=== PATIENT | male | born 1945 | race Caucasian/White ===

== ENCOUNTER 2020-08-23 20:19 | Emergency (ER) | payer MEDICARE, SELFPAY ==
[2020-08-23 20:24] VITALS: BP 201/87; PULSE 97; RESP 16; TEMP 37; O2SAT 98
[2020-08-23 20:37] VITALS: BP 182/81; PULSE 86; RESP 98; O2SAT 95
--- NOTE | 2020-08-23 20:56 | ED.ABDPAIN ---
HPI - Abdominal Pain General Chief Complaint: Extremity Injury, Lower <Tashi Prather PA-C - Last Filed: 08/23/20 21:02> Stated Complaint: right leg swelling <Tahsi Prather PA-C - Last Filed: 08/23/20 21:02> Time Seen by Provider: 08/23/20 20:25 <Tasih Prather PA-C - Last Filed: 08/23/20 21:02> Source: patient and family <Tashi Prather PA-C - Last Filed: 08/23/20 21:02> Mode of arrival: ambulatory <Tashi Prather PA-C - Last Filed: 08/23/20 21:02> Limitations: no limitations <Tashi Prather PA-C - Last Filed: 08/23/20 21:02> History of Present Illness HPI narrative: Patient is a 74-year-old male who presents to emergency department for evaluation of right leg pain and swelling that he noticed today. Patient notes he was discharged on from the hospital after having a right-sided carotid endarterectomy. Patient notes that his recovery is gone fine but noticed some swelling in the leg today patient notes upon returning to emergency department at [place] that he has had resolution of the swelling patient denies any pain. Patient denies injury trauma or similar occurrence in the past or any other complaints on arrival resting comfortably in no distress <Tashi Prather PA-C - Last Filed: 08/23/20 21:02> Related Data Allergies/Adverse Reactions: Allergies Allergy/AdvReac Type Severity Reaction Status Date / Time No Known Drug Allergies Allergy Unknown Verified 08/01/16 12:20 <Tashi Prather PA-C - Last Filed: 08/23/20 21:02> Review of Systems Review of Systems: All systems reviewed & are unremarkable except as noted in HPI and below <Tashi Prather PA-C - Last Filed: 08/23/20 21:02> [facility] Past Medical History Medical History: Medical History Hypertension Peripheral arterial disease <Tashi Prather PA-C - Last Filed: 08/23/20 21:02> Surgical History Surgical History: Surgical History H/O carotid endarterectomy <Tashi Prather PA-C - Last Filed: 08/23/20 21:02> Social History Social History: Social History (Updated 08/23/20 @ 21:00 by Tashi Prather PA-C) Smoking status: Unknown if ever smoked <Tashi Prather PA-C - Last Filed: 08/23/20 21:02> Exam Narrative: Exam Narrative: GENERAL: Well-appearing, well-nourished, and in no acute distress. HEAD: Normocephalic, atraumatic. EYES: PERRLA and EOMI. ENT: Nares clear, no rhinorrhea or epistaxis. Mucous membranes moist. NECK: Supple. No adenopathy or masses. CHEST: Clear to auscultation. No respiratory distress. No wheezes rales or rhonchi HEART: Regular rate and rhythm. No murmur heard. Normal peripheral pulses. EXTREMITIES: Normal range of motion. No edema. No deformity or tenderness of the right lower extremity SKIN: Warm, dry, no rash. NEURO: No focal deficits. Alert and oriented x3. Neurovascularly intact PSYCH: Normal mood and affect. <Tashi Prather PA-C - Last Filed: 08/23/20 21:02> Course Consultations Consultation #1: Discussed case with Dr. Young vascular surgeon who notes that the patient can be given a dose of Lovenox for ultrasound in the morning <Tashi Prather PA-C - Last Filed: 08/23/20 21:02> Date: 08/23/20 <Tashi Prather PA-C - Last Filed: 08/23/20 21:02> Time: 21:00 <JOSIAH Perez Last Filed: 08/23/20 21:02> Vital Signs Vital signs: Vital Signs Temperature 98.6 F 08/23/20 20:24 Pulse Rate 97 08/23/20 20:24 Respiratory Rate 16 08/23/20 20:24 Blood Pressure 201/87 H 08/23/20 20:24 Pulse Oximetry 98 08/23/20 20:24 Temperature 98.6 F 08/23/20 20:24 Pulse Rate 86 08/23/20 20:37 Respiratory Rate 98 H 08/23/20 20:37 Blood Pressure 182/81 H 08/23/20 20:37 Pulse Oximetry 95 08/23/20 20:37 <Tashi Prather PA-C - Last Filed
[2020-08-23] MEDS: ENOXAPARIN 100 MG/ML SYRINGE SUB-Q (21:11)
== END 2020-08-23 21:16 | disposition home or self-care (01) ==
PROVIDERS: Emergency Provider General Practice
DX: M79.604 Pain in right leg (principal); I10 Essential (primary) hypertension; I73.9 Peripheral vascular disease, unspecified
CPT/HCPCS: 96372; 99283; J1650

== ENCOUNTER 2020-08-24 07:15 | Outpatient (CLI) | payer MEDICARE, SELFPAY ==
--- NOTE | ~2020-08-24 | US_ITS ---
EXAMINATION: US venous doppler LE RT EXAM DATE: 08/24/2020 08:06 INDICATION: Right lower extremity swelling after endarterectomy. TECHNIQUE: Multiple grayscale, color flow and Doppler images of the right lower extremity deep venous system were obtained and reviewed. Comparison is made to prior examination from 08/01/2016. FINDINGS: The right common femoral, femoral and profunda veins demonstrate normal color flow, respira tory variation, augmentation and compressibility. Compressibility, color flow confirmed within the r ight popliteal, posterior tibial, peroneal, and greater saphenous veins. IMPRESSION: No right lower extremity deep venous thrombosis. Reviewed, dictated and finalized at location A.
== END 2020-08-24 07:16 | disposition home or self-care (01) ==
PROVIDERS: Visit Provider Emergency Medicine Emergency Medical Services
DX: M79.89 Other specified soft tissue disorders (principal)
CPT/HCPCS: 93971

== ENCOUNTER 2024-10-05 11:57 | Outpatient (CLI) | payer MEDICARE, SELFPAY ==
--- NOTE | 2024-10-05 12:19 | ECG_ITS ---
Test Date: 2024-10-05 12:26:12 Measurements Intervals [place] Rate: 82 P: -73 NH: 141 QRS: 16 QRSD: 103 T: 56 QT: 374 QTc: 439 Interpretive Statements SINUS RHYTHM INCOMPLETE RIGHT BUNDLE BRANCH BLOCK BORDERLINE ECG No previous ECG available for comparison Electronically Signed On 10-05-2024 13:12:15 TRUCK DOCK MATERIAL MOVER by Percy Poon D.O.
[2024-10-05 12:23] LABS: Basophils Absolute Auto 0.1 K/mm3 (0.0-0.1); Basophils Percent Auto 0.7 % (0.2-1.2); Eosinophils Absolute Auto 0.1 K/mm3 (0-0.3); Hematocrit 31.5 % (42.0-52.0); Hemoglobin 10.8 g/dL (14.0-18.0); Immature Granulocyte Absolute 0.02 K/mm3 (0.00-0.031); Immature Granulocyte Percent A 0.2 % (0-0.5); Lymphocytes Absolute Auto 2.21 K/mm3 (0.9-3.2); Lymphocytes Percent Auto 26.6 % (18.3-44.2); Mean Corpuscular HGB Conc 34.3 g/dl (32-36); Mean Corpuscular Hemoglobin 34.3 pg (26-34); Mean Platelet Volume 11.6 fl (7.4-10.4); Monocytes Absolute Auto 1.1 K/mm3 (0.1-0.6); Monocytes Percent Auto 13.5 % (2.6-8.5); Neutrophils Absolute Auto 4.8 K/mm3 (1.3-6.7); Platelet Count Result 224 k/mm3 (150-375); Red Blood Count 3.15 M/mm3 (4.6-6.20); Red Cell Distribution Width 13.4 % (11.5-14.5); White Blood Count 8.3 K/mm3 (4.5-10.0)
[2024-10-05 12:25] LABS: Add Urine Microscopic? YES; Appearance Urine Clear (Clear); Bilirubin Urine Negative (Negative); Blood Urine Negative (Negative); Color Urine Dark Yellow (Yellow); Glucose Urine UA Negative (Negative); Ketones Urine Negative (Negative); Leukocyte Esterase Ur Negative LEU/UL (Negative); Nitrate Urine Negative (Negative); Protein Urine Negative (Negative); Specific Grav Ur 1.016 (1.001-1.035); Urobilinogen Urine 0.2 mg/dL (<2.0)
[2024-10-05 12:37] LABS: Anion Gap 6 mmol/L (4-12); Blood Urea Nitrogen 20 mg/dL (9-20); Calcium 9.1 mg/dL (8.4-10.2); Carbon Dioxide 31 mmol/L (22-30); Chloride 98 mmol/L (98-107); Estimated Glomerular Filt Rate > 60; Glucose 92 mg/dL (65-110); Potassium 4.1 mmol/L (3.4-5.0); Sodium 135 mmol/L (137-145)
== END 2024-10-05 11:58 | disposition home or self-care (01) ==
PROVIDERS: Visit Provider Nurse Practitioner Family
DX: R94.31 Abnormal electrocardiogram [ECG] [EKG] (principal); R53.83 Other fatigue; M25.569 Pain in unspecified knee
CPT/HCPCS: 36415; 80048; 81001; 85025; 93005

== ENCOUNTER 2024-12-11 11:44 | Outpatient (CLI) | payer MEDICARE, SELFPAY ==
[2024-12-11 14:01] LABS: Basophils Absolute Auto 0.1 K/mm3 (0.0-0.1); Basophils Percent Auto 0.9 % (0.2-1.2); Eosinophils Absolute Auto 0.1 K/mm3 (0-0.3); Eosinophils Percent Auto 1.1 % (0-4.4); Hematocrit 33.3 % (42.0-52.0); Hemoglobin 11.3 g/dL (14.0-18.0); Immature Granulocyte Absolute 0.03 K/mm3 (0.00-0.031); Immature Granulocyte Percent A 0.3 % (0-0.5); Lymphocytes Absolute Auto 2.05 K/mm3 (0.9-3.2); Lymphocytes Percent Auto 22.7 % (18.3-44.2); Mean Corpuscular HGB Conc 33.9 g/dl (32-36); Mean Corpuscular Hemoglobin 33.4 pg (26-34); Mean Corpuscular Volume 98.5 fl (80-100); Mean Platelet Volume 11.8 fl (7.4-10.4); Monocytes Absolute Auto 0.8 K/mm3 (0.1-0.6); Monocytes Percent Auto 9.2 % (2.6-8.5); Neutrophils Absolute Auto 5.9 K/mm3 (1.3-6.7); Neutrophils Percent Auto 65.8 % (45.5-73.1); Platelet Count Result 219 k/mm3 (150-375); Red Blood Count 3.38 M/mm3 (4.6-6.20); Red Cell Distribution Width 13.2 % (11.5-14.5)
[2024-12-11 14:12] LABS: INR 0.9; Prothrombin Time 12.3 Seconds (11.1-14.7)
[2024-12-11 14:13] LABS: Add Urine Microscopic? NO; Appearance Urine Clear (Clear); Bilirubin Urine Negative (Negative); Blood Urine Negative (Negative); Color Urine Yellow (Yellow); Glucose Urine UA Negative (Negative); Ketones Urine Negative (Negative); Leukocyte Esterase Ur Negative LEU/UL (Negative); Nitrate Urine Negative (Negative); Partial Thromboplastin Time 27.1 Seconds (22.3-36.8); Protein Urine Negative (Negative); Specific Grav Ur 1.007 (1.001-1.035); Urobilinogen Urine 0.2 mg/dL (<2.0)
[2024-12-11 14:14] LABS: Anion Gap 5 mmol/L (4-12); Blood Urea Nitrogen 17 mg/dL (9-20); Calcium 9.5 mg/dL (8.4-10.2); Carbon Dioxide 32 mmol/L (22-30); Chloride 98 mmol/L (98-107); Estimated Glomerular Filt Rate > 60; Glucose 92 mg/dL (65-110); Potassium 4.6 mmol/L (3.4-5.0); Sodium 135 mmol/L (137-145)
[2024-12-11 14:33] LABS: Hemoglobin A1C 5.1 % (<5.7)
[2024-12-11 14:46] LABS: Urine Cotinine NEGATIVE
[2024-12-11 15:23] LABS: MRSA (PCR) NOT DETECTED (NOT DETECTE)
--- OUTSIDE RECORDS SUMMARY | 2024-12-13 17:58 | XMS_ITS | Encounter Summary ---
Author Organization [facility] Address [address] [place] [address] Phone Care Team Providers Care Analytical Scientist Name Role Phone Pelon Menard MD Primary Care Provider + [phone] Ck Kerr MD Unavailable Encounter Details Date Type Department Care Team (Late st Contact Info) Description 06/18/2021 Transcribe Orders [facility] Laboratory Services [address] [place] [address] Lon Andrade MD [address] [facility] [address] [place], [place] [address] Hypertension, unspecified type (Primary Dx) Social History Tobacco Use Types Packs/Day Years Used Date Smoking Tobacco: Former Cigarettes 1 10 1 3 - 1982 Smokeless Tobacco: Never Alcohol Use Standard Drinks/Week Comments Yes 14 (1 standard drink = 0.6 oz pu re alcohol) PHQ-2 Answer Date Recorded Total Score - Questions 1-9 0 11/22 Sex and Gender Information Value Date Recorded Sex Assigned at Not on file Legal Sex Male 8:37 PM CDT Gender Identity Not on file Sexual Orientation Not on file documented as of this encounter Plan of Treatment Scheduled Orders Name Type Priority Associated Diagnoses Orde r Schedule BASIC METABOLIC PANEL W/ CALCIUM TOTAL Lab Routine Hypertension, unspecified type Expected: 06/18/2021, Expires: 06/18/2022 UR CREATININE RANDOM Lab Routine Hypertension, unspecified type Expected: 06/18/2021, Expires: 06/18/2022 UR UREA NITROGEN (UUN) Lab Routine Hypertension, unspecified type Expected: 06/18/2021, Expires: 06/18/2022 documented as of this encounter Visit Diagnoses Diagnosis Hypertension, unspecified type- Primary documented in this encounter Additional Health Concerns Assessment Noted Time PHQ-9 Depression Total Score: 0 12/10/19 21 9:00 AM 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
--- OUTSIDE RECORDS SUMMARY | 2024-12-13 17:58 | XMS_ITS | Encounter Summary ---
Author Organization [facility] Address [address] [place] [address] Phone Care Team Providers Care Formula Bottler Name Role Phone Pelon Menard MD Primary Care Provider + [phone] Ck Kerr MD Unavailable Reason for Visit * Reason Comments Medication Refill Encounter Details Date Type Department Care Team ([facility] Contact Info) Description 04/27/2022 Refill [facility] [address] [place] [address] Pelon Menard MD [address] [place] [address] [address] [place] [address] Medication Refill Social History Tobacco Use Types Packs/Day Years Used Date Smoking Tobacco: Former Cigarettes 1 10 1982 Smokeless Tobacco: Never Alcohol Use Standard Drinks/Week Comments Yes 14 (1 standard drink = 0.6 oz pu re alcohol) PHQ-2 Answer Date Recorded Total Score - Questions 1-9 0 07/23 Sex and Gender Information Value Date Recorded Sex Assigned at Not on file Legal Sex Male 8:37 PM CDT Gender Identity Not on file Sexual Orientation Not on file COVID-19 Exposure Response Date Recorded In the last 10 days, have yo u been in contact with someone who was confirmed or suspected to have Coronavirus/COVID-19? No / Unsure 04/20/2022 2:54 PM CDT documented as of this encounter Plan of Treatment Not on file documented as of this encounter Visit Diagnoses Diagnosis Gout of ankle, unspecified cause, unspecified chronicity, unspecified laterality documented in this encounter Additional Health Concerns Assessment Noted Time PHQ-9 Depression Total Score: 0 08/18/20 21 3:00 PM CDT documented as of this encounter Care Teams Formula Bottler Relationship Specialty Start Date End Date Pelon Menard MD [address] [facility] [address] [place] [address] PCP - General Internal Medicine 06/13/18 Ck Kerr MD [address] [place] [address] [address] [place] [address] Consulting Physician General Surgery 08/01/18 documented as of this encounter
--- OUTSIDE RECORDS SUMMARY | 2024-12-13 17:58 | XMS_ITS | Encounter Summary ---
Author Organization [facility] Address [address] [place] [address] Phone Care Team Providers Care Helicopter Technician Name Role Phone Pelon Menard MD Primary Care Provider + [phone] Ck Kerr MD Unavailable Encounter Details Date Type Department Care Team ([facility] Contact Info) Description 10/18/2022 Telephone [facility] [address] [place] [address] Pelon Menard MD [address] [address] Social History Tobacco Use Types Packs/Day Years Used Date Smoking Tobacco: Former Cigarettes 1 10 1 1982 Smokeless Tobacco: Never Alcohol Use Standard [...] suspected to have Coronavirus/COVID-19? No / Unsure 09/28/2022 12:00 PM SET UP WORKER documented as of this encounter Miscellaneous Notes * Telephone Encounter - Rut Argueta CMA - 10/19/2022 2:25 PM CST 14[address] Maria M with [facility] called to inform office that they received requested documents. By: Rut Argueta CMA; 10/19/2022, 2:26 PM SET UP WORKER UP WORKER * Telephone Encounter - Carmina Ge LPN - 10/19/2022 1:41 PM CST Returned call and left a message for them to call me back. UP WORKER * Telephone Encounter - Gissell Huffman - 10/18/2022 11:15 AM CST Maria M/[facility] called regarding the documents that were sent via [employer] about the letter of competency. stated she is waiting for over a week to hear from someone. [phone] UP WORKER documented in this encounter Plan of Treatment Not on file documented as of this encounter Visit Diagnoses Not on filedocumented in this encounter Additional Health Concerns Assessment Noted Time PHQ-9 Depression Total Score: 0 08/18/20 21 3:00 PM CDT documented as of this encounter Care Teams Helicopter Technician Relationship Specialty Start Date End Date Pelon Menard MD [address] [facility] [address] [place] [address] PCP - General Internal Medicine 06/13/18 Ck Kerr MD 1 [facility] [address] [place] [address] Consulting Physician General Surgery 08/01/18 documented as of this encounter
--- OUTSIDE RECORDS SUMMARY | 2024-12-13 17:58 | XMS_ITS | Encounter Summary ---
Author Organization [facility] Address [address] [place] [address] Phone Care Team Providers Care Java Websphere Developer Name Role Phone Pelon Menard MD Primary Care Provider + [phone] Ck Kerr MD Unavailable Reason for Visit * Reason Onset Date Comments Medication Refill 12/24/2020 Encounter Details Date Type Department Care Team ([facility] st Contact Info) Description 12/24/2020 Refill [facility] [address] [place] [address] Pelon Menard MD [address] [place] [address] Medication Refill Social History Tobacco Use [...] Exposure Response Date Recorded In the last month, have you been in contact with someone who was confirmed or suspected to have Coronavirus / COVID-19? No / Unsure 12/10/2020 8:54 AM PLANT AND EQUIPMENT WORKER documented as of this encounter Plan of Treatment Not on file documented as of this encounter Visit Diagnoses Not on filedocumented in this encounter Additional Health Concerns Assessment Noted Time PHQ-9 Depression Total Score: 0 12/10/19 21 9:00 AM PLANT AND EQUIPMENT WORKER documented as of this encounter Care Teams Java Websphere Developer Relationship Specialty Start Date End Date Pelon Menard MD [address] [facility] [address] [place] [address] PCP - General Internal Medicine 06/13/18 Ck Kerr MD 1 [facility] [address] [place] [address] Consulting Physician General Surgery 08/01/18 documented as of this encounter
--- OUTSIDE RECORDS SUMMARY | 2024-12-13 17:58 | XMS_ITS | Clinical Summary ---
Author Organization [facility] Address [address] [place] [address]. [place] [address] [place] [address] Care Team Providers Care Supervisor Ship Maintenance Services Name Role Phone Freddy Alvarado MD Unavailable [phone] Pelon Menard MD Primary Care Provider [phone]- [phone] Allergies No known active allergies Medications trospium 20 MG tabletIndication s:Overactive bladder Take 1 tablet (20 mg total) by mouth 2 (two) times daily. 180 tablet 11/08/2018 Active aspirin EC (ECOTRIN) 81 MG tablet Take 1 tablet (81 mg total) by mouth daily. Active Cholecalciferol (VITAMIN D3 ULTRA POTENCY) 1.25 MG (61206 UT) Tab Take 1 tablet by mouth daily. Active amLODIPine (NORVASC) 5 MG tablet Take 2 tablets (10 mg total) by mouth every evening. 09/29/2022 Active allopurinol (ZYLOPRIM) 300 MG tablet Take 1 tablet (300 mg total) by mouth daily. 07/06/2017 Active Multiple Vitamin (MULTIVITAMIN ADULT OR) Take 1 tablet by mouth. Active fish oil (OMEGA-3 FATTY ACID) 1000 MG Cap capsule Take 1 capsule (1,000 mg total) by mouth. Active CO ENZYME Q-10 OR Take 200 mg by mouth. Active cloNIDine (CATAPRES) 0.2 MG tablet Take 1 tablet (0.2 mg total) by mouth nightly. Active fenofibrate 160 MG tablet Take 1 tablet (160 mg total) by mouth daily. 08/04/2017 Active furosemide (LASIX) 40 MG tablet Take 1 tablet (40 mg total) by mouth 2 (two) times daily. 07/28/2022 Active indapamide (LOZOL) 1.25 MG tablet Take 1 tablet (1.25 mg total) by mouth every morning. 02/09/2023 Active atorvastatin (LIPITOR) 40 MG tablet Take 1 tablet (40 mg total) by mouth daily. 11/22/2022 Active metoprolol succinate ER (TOPROL-XL) 50 MG 24 hr tablet Take 1 tablet (50 mg total) by mouth 2 (two) times daily. 06/08/2022 Active olmesartan (BENICAR) 40 MG tablet Take 1 tablet (40 mg total) by mouth daily. 01/11/2023 Active potassium chloride CR (K-TAB) 10 MEQ Tab CR tablet Take 1 tablet (10 mEq total) by mouth daily. 02/09/2023 Active terazosin (HYTRIN) 2 MG capsule Take 1 capsule (2 mg total) by mouth nightly at bedtime. Active isosorbide mononitrate ER (IMDUR) 120 MG 24 hr tablet TAKE 1 TABLET BY MOUTH IN THE EVENING between 6-8pm 02/21/2024 Active Active Problems Problem Noted Date Diagnosed Date Overactive bladder 03/28/2018 Social History Tobacco Use Types Packs/Day Years Used Date Smoking Tobacco: Former Cigarettes Smokeless Tobacco: Never Sex and Gender Information Value Date Recorded Sex Assigned at Not on file Legal Sex Male 9:07 PM CDT Gender Identity Not on file Sexual Orientation Not on file Last Filed Vital Signs Vital Sign Reading Time Taken Comments Blood Pressure 156/86 04/12/2024 2:54 PM CDT Pulse 106 04/12/2024 2:54 PM CDT Temperature - - Respiratory Rate - - Oxygen Saturation 98% 04/12/2024 2:54 PM CDT Inhaled Oxygen Concentration - - Weight 88.5 kg (195 lb) 04/12/2024 2:54 PM CDT Height 175.3 cm (5' 9 ) 04/12/2024 2:54 PM CDT Body Mass Index 28.8 04/12/2024 2:54 PM CDT Plan of Treatment Upcoming Encounters Date Type Department Care Team (Late st Contact Info) Description 04/18/2025 2:15 PM CDT Appointment [facility] [address] [place] [address] 04/18/2025 2:45 PM CDT Office Visit [facility] [address] [place] [address] Freddy Alvarado MD [address] [facility] [address] [place] [address] Health Maintenance Due Date Last Done Comments Annual Medicare Wellness Visit 2008 RSV Immunization or 60+ Years (1 - 1-dose 75+ series) 2018 COVID-19 Vaccine ( season) 2024 08/20/2022, 10/12/2021, 01/02/2021, Additional history exists Influenza Adult (#1) 2024 07/29/2020, 08/25/2019, 08/14/2018, Additional history exists DTaP, Tdap and Td Vaccines (2 - Td or Tdap) 12/13/2029 12/13/2019 Zoster Vaccines Completed 12/06/2019, 1003/2019, 09/07/2012 Pneumococcal Vaccine: 65+ Years Completed 12/13/2019, 12/14/2018, 09/09/2010 Meningococcal B Vaccine Aged Out No l onger eligible based on patient's age to complete this topic Meningococcal Vaccine Aged Out No jesus iveth eligible based on patient's age to complete this topic RSV Immunizations Under 20 Months Aged Out No longer eligible based on patient's age to complete this topic Insurance MEDICARE [facility] Care Teams Supervisor Ship Maintenance Services Relationship Specialty Start Date End Date Pelon Menard MD [address] [address] PCP - General INTERNAL MEDICINE 01/25/23 Freddy Alvarado MD [address] [address] VASCULAR SURGERY 01/25/23
--- OUTSIDE RECORDS SUMMARY | 2024-12-13 17:58 | XMS_ITS | Encounter Summary ---
Author Organization [facility] Address [address] [place] [address] Phone Care Team Providers Care Sawmill Hand Name Role Phone Pelon Menard MD Primary Care Provider + [phone] Ck Kerr MD Unavailable Reason for Visit * Reason Comments Medication Refill Encounter Details Date Type Department Care Team ([facility] Contact Info) Description 03/29/2022 Refill [facility] [address] [facility] [address] [place] [address] Pelon Menard MD [address] [place] [address] [address] [place] [address] Medication Refill Social History Tobacco [...] on file documented as of this encounter Miscellaneous Notes * Telephone Encounter - Lily Muñoz MA - 03/29/2022 1:07 PM CDT Requested Prescriptions Pending Prescriptions Disp Refills ??? allopurinol (ZYLOPRIM) 300 MG Tablet [Pharmacy Med Name: ALLOPURINOL 300MG] 30 Tablet 0 Sig: TAKE 1 TABLET BY MOUTH DAILY. documented in this encounter Plan of Treatment Not on file documented as of this encounter Visit Diagnoses Diagnosis Gout of ankle, unspecified cause, unspecified chronicity, unspecified laterality documented in this encounter Additional Health Concerns Assessment Noted Time PHQ-9 Depression Total Score: 0 08/18/20 21 3:00 PM CDT documented as of this encounter Care Teams Sawmill Hand Relationship Specialty Start Date End Date Pelon Menard MD [address] [facility] [address] [place] [address] PCP - General Internal Medicine 06/13/18 Ck Kerr MD 1 [facility] [address] [place] [address] Consulting Physician General Surgery 08/01/18 documented as of this encounter
--- OUTSIDE RECORDS SUMMARY | 2024-12-13 17:58 | XMS_ITS | Clinical Summary ---
Author Organization [facility] Address [address] [facility] [address] [place] [address] Phone Care Team Providers Care Instructional Paraprofessional Name Role Phone Pelon Menard MD Primary Care Provider +- [phone] Ck Kerr MD Unavailable Allergies No known active allergies Medications [place]-3 Fatty Acids (FISH OIL PO) Take 1,000 mg by mouth. Take two daily Active Multiple Vitamins-Mineral s (MULTIVITAMIN PO) Take 1 Tab by mouth. Active Aspirin 81 MG Tablet Take 81 mg by mouth daily. Active Cholecalciferol (VITAMIN D-3 PO) Take 1 Tab by mouth daily. Active Coenzyme Q10 (CO Q 10 PO) Take 200 mg by mouth. Take two daily Active atorvastatin (LIPITOR) 40 MG Tablet Take 40 mg by mouth daily. 2 Active clopidogrel (PLAVIX) 75 MG Tablet Take 75 mg by mouth daily. 2 Active mometasone (ELOCON) 0.1 % Cream as needed 2 Active nitroGLYCERIN (NITROSTAT) 0.4 MG SL Tablet 0.4 mg by Sublingual route. 2 Active cloNIDine (CATAPRES) 0.2 MG Tablet Take 0.2 mg by mouth nightly. Active furosemide (LASIX) 40 MG Tablet 1 Tablet 2 times daily. 90 Tablet 2 Active allopurinol (ZYLOPRIM) 300 MG TabletIndication s:Gout of ankle, unspecified cause, unspecified chronicity, unspecified laterality TAKE 1 TABLET BY MOUTH DAILY. 90 Tablet 2 2 Active amLODIPine (NORVASC) 5 MG Tablet Take 2 Tablets by mouth every evening. 180 Tablet 3 2 Active Olmesartan Medoxomil 40 MG Tablet Take 1 Tablet by mouth daily. 90 Tablet 1 2 Active isosorbide mononitrate (IMDUR) 120 MG TABLET SR 24 HR Take 1 Tablet by mouth every evening. 90 Tablet 1 2 Active potassium chloride CR (KLORCON) 10 MEQ Tablet Controlled ReleaseIndicatio ns:Benign prostatic hyperplasia with urinary obstruction,Hype rtensive kidney disease with stage 1 chronic kidney disease,Abnormal blood findings TAKE 1 TABLET BY MOUTH DAILY. 90 Tablet 2 2 Active indapamide (LOZOL) 1.25 MG Tablet Take 1 Tablet by mouth every morning. 90 Tablet 3 2 Active trospium (SANCTURA) 20 MG Tablet Take 1 Tablet by mouth in the morning and at bedtime. 60 Tablet 3 2 Active Active Problems Problem Noted Date Diagnosed Date Carotid stenosis, asymptomatic, right 09/03/2020 Hypertensive kidney disease with stage 1 chronic kidney disease 12/15/2019 Adenomatous polyp of transverse colon 12/15/2019 Chronic gout of foot 12/15/2019 Benign essential hypertension 06/13/2018 Assessment & Plan (06/13/2018 9:38 AM CDT): Blood pressure is noted to be elevated today. He states that his blood pressure is always lower at home. I have recommended that he continue his same medication. Will have him check his blood pressure regularly at home and send me a report in one month. His last electrolytes were normal and his last creatinine was 1.00. Mixed hyperlipidemia 06/13/2018 Assessment & Plan (06/13/2018 9:37 AM CDT): Continue his statin therapy and follow his lipid profile periodically. His last lipid profile showed a total cholesterol 183, triglyceride 151, HDL 50 and LDL 103. He states that he recently had a carotid ultrasound by Dr. Alvarado it was normal. Special screening for malignant neoplasm of pros santoro 11/11/2016 Benign prostatic hyperplasia with urinary obstru ction 11/11/2015 Erectile dysfunction 11/11/2015 Urge incontinence 11/11/2015 Immunizations Immunization Administration Dates Next Due Influenza Vaccine 07/29/2020 Influenza Vaccine greater than 3 yrs 08/25/2016, 08/26/2015 Influenza Vaccine less than 3 yrs 08/15/2018 Influenza, Quadrivalent, Adjuvanted 08/18/2021,0 07/29/2020 Influenza, Seasonal, Injecta ble, Undefined 08/23/2014,08/28/2013 Influenza, Trivalent, Adjuvanted, PF 07/29/2020, 08/14/2018,08/28/2017 Influenza, high-dose, trivalent, PF 08/25/2019,1 ,08/25/2015 Pneumococcal Vaccine - 13 Valent 12/14/2018 Pneumococcal Vaccine Adult - 23 Valent 12/13/2019,09/09/2010 TDAP Vaccine 12/13/2019 Zoster Vaccine Recombinant 12/06/2019,,08/25/2019,2018 Zoster Vaccine, live 09/07/2012 Family History Medical History Relation Name Comments Congestive Heart Failure Father No Known Problems Mother Relation Name Status Comments Father (Age 73) Mother (Age 87) Social History Tobacco Use Types Packs/Day Years Used Date Smoking Tobacco: Former Cigarettes 1 10 1 973 - 1982 Smokeless Tobacco: Never Tobacco Cessation:Counseling Given: No Alcohol Use Standard Drinks/Week Comments Yes 14 [...] Sign Reading Time Taken Comments Blood Pressure 94/58 07/28/2022 8:42 AM CDT Pulse 76 07/28/2022 8:42 AM CDT Temperature 36.3 ??C (97.4 ??F) 12/10/2020 9:03 AM CS T Respiratory Rate 20 08/21/2020 11:00 AM CDT Oxygen Saturation 97% 07/28/2022 8:42 AM CDT Inhaled Oxygen Concentration - - Weight 95.1 kg (209 lb 9.6 oz) 07/28/2022 8:42 A M CDT Height 172.7 cm (5' 8 ) 07/28/2022 8:42 AM CDT Body Mass Index 31.87 07/28/2022 8:42 AM CDT Plan of Treatment Health Maintenance Due Date Last Done Comments Hepatitis C Virus (HCV) Screening 1945 Respiratory Syncytial Virus (RSV) Immunization (Adult) (1 - 1-dose 75+ series) 2018 Influenza Immunization (#1) 07/22/202407/24, 08/18/2021, 07/29/2020, Additional history exists SARS-COV-2 Immunization ( season) 2024 08/20/2022, 10/12/2021, 01/02/2021, Additional history exists Zoster Immunization Completed 12/06/2019, 12/06/2019, 08/25/2019, Additional history exists DTaP/Tdap/Td Immunization Discontinued 12/13/2019 Pneumococcal Immunization (50+ years) Completed 12/13/2019, 12/14/2018, 09/09/2010 Pneumococcal Immunization Combined Discontinued 12/13/2019, 12/14/2018, 09/09/2010 Hepatitis B Immunization Aged Out No longer eligible based on patient's age to complete this topic Meningococcal Immunization (ACWY) Aged Out No longer eligible based on patient's age to complete this topic Rotavirus Immunization Aged Out No lo nger eligible based on patient's age to complete this topic Medical Devices Implanted Type Area Architectural Drafting Instructor Device Identifier Shelf Expiration Date Model / Serial / Lot Patch Bovine Vascu Guard 1 X 6cm [id number] - [id number] Implanted:Qty: 1 on 08/20/2020 by Freddy Alvarado MD at [facility] IMPLANT Right: [employer] 12/26/2024 [id number] / / [id number] [facility] Advance Directives * Full Code (Latest Code Status on File) Date Activated Date Inactivated Comments 08/20/2020 5:22 PM 08/21/2020 3:42 PM CPR-Full Harry atment: FULL ARREST: Attempt Resuscitation/CPR wit intubation and mechanical ventilation. PRE-ARREST: Use entire range of life support measures to stabilize the patient. Care Teams Instructional Paraprofessional Relationship Specialty Start Date End Date Pelon Menard MD [address] [facility] [address] [place] [address] PCP - General Internal Medicine 06/13/18 Ck Kerr MD [address] [facility] [address] [place] [address] Consulting Physician General Surgery 08/01/18
--- OUTSIDE RECORDS SUMMARY | 2024-12-13 17:59 | XMS_ITS | Encounter Summary ---
Author Organization [facility] Address [address] [place] [address] Phone Care Team Providers Care Roving Can Tender Name Role Phone Pelon Menard MD Primary Care Provider + [phone] Ck Kerr MD Unavailable Reason for Visit * Reason Comments Medication Refill Encounter Details Date Type Department Care Team ([facility] Contact Info) Description 06/09/2020 Refill [facility] [address] [place] [address] Pelon Menard MD [address] [place] [address] Medication Refill Social History Tobacco Use Types Packs/Day Years Used Date Smoking Tobacco: Former Cigarettes 1 10 Smokeless Tobacco: Never Alcohol Use Standard Drinks/Week Comments Yes 14 (1 standard drink = 0.6 oz pu re alcohol) PHQ-2 Answer Date Recorded PHQ-2 Score 0 07/25/2019 Sex and Gender Information Value Date Recorded Sex Assigned at Not on file Legal Sex Male 8:37 PM CDT Gender Identity Not on file Sexual Orientation Not on file documented as of this encounter Miscellaneous Notes * Telephone Encounter - Sri Quintana CMA - 06/09/2020 8:58 AM CDT Requested Prescriptions Pending Prescriptions Disp Refills ??? quinapril (ACCUPRIL) 40 MG Tablet [Pharmacy Med Name: QUINAPRIL 40MG] 90 Tab 0 Sig: TAKE 1 TABLET BY MOUTH EVERY EVENING. 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
--- OUTSIDE RECORDS SUMMARY | 2024-12-13 17:59 | XMS_ITS | Encounter Summary ---
Author Organization [facility] Address [address] [place] [address] Phone Care Team Providers Care Detective Youth Bureau Name Role Phone Pelon Menard MD Primary Care Provider + [phone] Ck Kerr MD Unavailable Encounter Details Date Type Department Care Team (Late st Contact Info) Description 08/18/2020 Transcribe Orders [facility] [address] [place] [address] Freddy Alvarado MD [address] [address] Pre-op testing (Primary Dx) Social History Tobacco Use Types Packs/Day Years Used Date Smoking Tobacco: Former Cigarettes 1 10 1 973 - 1982 Smokeless Tobacco: Never Alcohol Use [...] have Coronavirus / COVID-19? No / Unsure 08/20/2020 10:24 AM CDT documented as of this encounter Plan of Treatment Not on file documented as of this encounter Results * (ABNORMAL) HEMOGLOBIN & HEMATOCRIT (H&H) (08/19/2020 10:30 AM CDT) HEMOGLOBIN (HGB) 12.7 12.6 - 17.4 g/dL 08/19/2020 11:19 AM CDT [facility] HEMATOCRIT (HCT) 37.6(L) 39.8 - 52.2 % 08/19/2020 11:19 AM CDT [facility] Blood No Phlebotomy Charged / Unknown 08/19/2020 10:30 AM CDT 08/19/2020 11:11 AM CDT us Freddy Alvarado MD HEMATOLOGY ORDERABLES Maricruz dill Result [facility] [address] [place] [address] documented in this encounter Visit Diagnoses Diagnosis Pre-op testing- Primary Preoperative examination, unspecified documented in this encounter Additional Health Concerns Assessment Noted Time PHQ-9 Depression Total Score: 0 08/18/20 20 11:00 AM CDT documented as of this encounter Care Teams Detective Youth Bureau Relationship Specialty Start Date End Date Pelon Menard MD [address] [facility] [address] [place] [address] PCP - General Internal Medicine 06/13/18 Ck Kerr MD 1 [facility] [address] [place] [address] Consulting Physician General Surgery 08/01/18 documented as of this encounter
--- OUTSIDE RECORDS SUMMARY | 2024-12-13 17:59 | XMS_ITS | Clinical Summary ---
Author Organization [facility] Address [address] [place] [address] Care Team Providers Care Event Marketing Assistant Name Role Phone Pelon Menard MD Primary Care Provider [phone] [phone] Allergies No known active allergies Medications allopurinoL (ZYLOPRIM) 300 mg tablet daily 0 Active trospium (SANCTURA) 20 mg tablet daily 0 Active indapamide (LOZOL) 1.25 mg tablet furniture delivery driver before breakfast 2 Active isosorbide mononitrate ER (IMDUR) 120 mg 24 hr tablet daily Between 6 & 8 PM 2 Active mometasone (ELOCON) 0.1 % cream as needed 2 Active olmesartan (BENICAR) 40 mg tablet 2 Active multivitamin capsule Take 1 capsule by mouth 2 (two) times a day Active omega 7-jbx-ije-fish oil 100-160-1,000 mg capsule Take 2,000 mg by mouth 2 (two) times a day Active coenzyme Q10 200 mg capsule Take 1 capsule (200 mg total) by mouth 2 (two) times a day Active aspirin 81 mg chewable tablet Take 1 tablet (81 mg total) by mouth daily Active vitamin D3-vitamin K2 1,250-200 mcg capsule Take 1 tablet by mouth furniture delivery driver before breakfast Active amLODIPine (NORVASC) 5 mg tablet Take 1 tablet (5 mg total) by mouth daily 90 tablet 3 2 Active terazosin (HYTRIN) 2 mg capsule Take 1 capsule (2 mg total) by mouth daily Active cholecalciferol (VITAMIN D-3) 34983 unit tablet Take 1 tablet (50,000 Units total) by mouth daily Active potassium chloride ER 20 mEq CR tablet Take 1 tablet (20 mEq total) by mouth daily 90 tablet 3 4 09/19/20 25 Active Active Problems Problem Noted Date Diagnosed Date Operculated retinal tear of left eye 02/14/2023 Assessment & Plan (02/17/2024 3:33 PM CDT): Stable. Observe. Assessment & Plan (02/14/2023 9:21 AM CDT): Asymptomatic. Well pigmented. Operculated. Low risk. The signs and symptoms of retinal detachment were reviewed. Advised urgent evaluation with any onset. 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 Observe. Nuclear sclerotic cataract of both eyes 01/11/20 20 Assessment & Plan (02/17/2024 3:33 PM CDT): Stable on exam today. Pt will go to local optical for Srx. F/u annually. Assessment & Plan (02/14/2023 9:21 AM CDT): Stable OU. F/u annually. Assessment & Plan (01/29/2022 3:28 PM ROLLER INSPECTOR): Stable. Observe. ATs prn. Renewed last SRx for pt. Assessment & Plan (01/26/2021 8:44 AM ROLLER INSPECTOR): Stable. Re-evaluate annually. Assessment & Plan (01/11/2020 2:36 PM ROLLER INSPECTOR): Surgery not yet indicated. rec observation. Offered SRx, pt declines. Re-evaluate in 1 year, sooner prn. Vitreous syneresis of both eyes 01/11/2020 Assessment & Plan (02/14/2023 9:21 AM CDT): Stable. Observe. Assessment & Plan (01/29/2022 3:28 PM ROLLER INSPECTOR): Stable. Observe. Assessment & Plan (01/26/2021 8:44 AM ROLLER INSPECTOR): S/s of retinal detachment reviewed, advised urgent evaluation with any onset. Assessment & Plan (01/11/2020 2:36 PM ROLLER INSPECTOR): S/s of retinal detachment reviewed, advised urgent evaluation with any onset. Resolved Problems Problem Noted Date Diagnosed Date Resolved Date Contact blepharoconjunctivitis of right eye 06/12/2019 01/11/2020 Assessment & Plan (06/12/2019 9:28 AM CDT): Start Tobradex BID right eye (OD), apply inside the eye and (with cotton swab) to the right lower eyelid (RLL) BID. Dc Lotemax. Pt ed on precautionary measures. Encounters Date Type Department Care Team Description 12/11/2024 Telephone [facility] Cardiology [address] [place] [address] 8th [place] [address] [place] [address] Mitchell Perez MD Medical Records Request 09/19/2024 10:45 AM CDT Office Visit [facility] Cardiology [facility] Medical Office Building [address] [place] [id number] Mitchell Perez MD Coronary artery disease involving walker river coronary artery of [place] heart without angina pectoris (Primary Dx) from Last 3 Months Surgical History Surgery Date Site/Laterality Comments CAROTID ENDARTERECTOMY Medical History Medical History Date Comments Hypertension Hyperlipidemia Heart murmur Cancer (CMS/HCC) (HCC) basal steve l on face Operculated retinal tear of left eye 02/14/2023 Family History Medical History Relation Name Comments Hypertension Father Glaucoma Neg Hx Macular degeneration Neg Hx Relation Name Status Comments Father Social History Tobacco Use Types Packs/Day Years Used Date Smoking Tobacco: Never Smokeless Tobacco: Never Tobacco Cessation:Counseling Given: Not Answered AUDIT-C Answer Date Recorded Q1: How often do you have a drink containing alcohol? 4 or more times a week 02/26/2022 Q2: How many drinks containi ng alcohol do you have on a typical day when you are drinking? 1 or 2 Q3: How often do you have si x or more drinks on one occasion? Less than monthly 02/26/2022 Sex and Gender Information Value Date Recorded Sex Assigned at Not on file Legal Sex Male 3:06 PM ROLLER INSPECTOR Gender Identity Not on file Sexual Orientation Not on file Obstetrics History Last Filed Vital Signs Vital Sign Reading Time Taken Comments Blood Pressure 158/92 09/19/2024 10:45 AM CDT Pulse 82 09/19/2024 10:45 AM CDT Temperature 36.5 ??C (97.7 ??F) 02/26/2022 7:45 AM CD T Respiratory Rate 14 02/26/2022 1:50 PM CDT Oxygen Saturation 99% 09/19/2024 10:45 AM CDT Inhaled Oxygen Concentration - - Weight 88.5 kg (195 lb) 09/19/2024 10:45 AM CDT Height 175.3 cm (5' 9 ) 09/19/2024 10:45 AM CDT Body Mass Index 28.8 09/19/2024 10:45 AM CDT Plan of Treatment Health Maintenance Due Date Last Done Comments Depression Screening 1945 Hepatitis B Screening 1961 Well Visit 65+ 2008 Fall Risk Assessment 02/26/2023 02/26/2022 Influenza Vaccine (#1) 2024 0, 07/29/2020, 08/25/2019, Additional history exists DTaP/Tdap/Td Vaccine (2 - Td or Tdap) 12/13/2029 12/13/2019 Zoster Vaccine Completed 12/06/2019, 1003/2019, 09/07/2012 Pneumococcal vaccine 65+ Completed 020, 12/14/2018, 09/09/2010 Medical Devices Implanted Type Area Complex Commercial Litigation Paralegal Device Identifier Shelf Expiration Date Model / Serial / Lot [employer] [id number] Device 7fr Closure Celt Acd Vascular Sterile Latex Free Disposable Priscilla - [id number] - [id number] Implanted:Qty: 1 on 02/26/2022 by Mitchell Perez MD at [facility] Other - see comments Right: Groin [employer] 05/15/2023 [facility] [id number] / [id number] / [id number] Resolute [place] Ux 3.0x18mm Vaughn Stent [id number] - [id number] 1 - [id number] Implanted:Qty: 1 on 02/26/2022 by Mitchell Perez MD at [facility] Stent N/A: Coronary Medtronic Inc 12/06/2024 [id number] / [id number] / [id number] Medtronic Usa Inc X [id number] Resolute [place] 3mm 2.1-2.7fr 8mm 140cm Rapid Exchange Radiopaque 1 - [id number] 1 - [id number] Implanted:Qty: 1 on 02/26/2022 by Mitchell Perez MD at [facility] Stent N/A: Coronary [employer] Inc 10/15/2024 [id number] / [id number] / [id number] Insurance MEDICARE [facility]ICARE [facility] Advance Directives For more information, please contact: [phone] * Full Code (Latest Code Status on File) Date Activated Date Inactivated Comments 02/26/2022 1:27 PM 02/26/2022 8:11 PM Care Teams Event Marketing Assistant Relationship Specialty Start Date End Date Pelon Menard MD [address] [address] PCP - General Internal Medicine 05/07/19
--- OUTSIDE RECORDS SUMMARY | 2024-12-13 17:59 | XMS_ITS | Encounter Summary ---
Author Organization [facility] Address [address] [place] [address] Phone Care Team Providers Care Electrical Manufacturing Engineer Name Role Phone Pelon Menard MD Primary Care Provider + [phone] Ck Kerr MD Unavailable Encounter Details Date Type Department Care Team (Late st Contact Info) Description 07/10/2020 Transcribe Orders [facility] PERIOP [address] [place] [address] Freddy Alvarado MD [address] [place] [address] [address] Carotid stenosis, asymptomatic, right (Primary Dx) Social History Tobacco Use Types [...] have Coronavirus / COVID-19? No / Unsure 07/10/2020 12:13 PM CDT documented as of this encounter Plan of Treatment Scheduled Orders Name Type Priority Associated Diagnoses Orde r Schedule PREPARE RED BLOOD CELLS Blood Bank Routine Carotid stenosis, asymptomatic, right Expected: 07/16/2020, Expires: 08/10/2020 documented as of this encounter Results * TYPE & SCREEN (CROSSMATCH CONVERTIBLE) (07/15/2020 11:33 AM CDT) ABO TYPING AB 07/15/2020 1:57 PM CDT [facility] RH POS 07/15/2020 1:57 PM CDT [facility] ABSC NEG 07/15/2020 1:57 PM CDT [facility] Blood Venipuncture / Unknown 07/15/2020 11:33 AM CDT 07/15/2020 11:33 AM CDT us Freddy Alvarado MD BLOOD BANK ORDERABLES Edit ed Result - Final [facility] [address] [place] [address] * (ABNORMAL) CMP (COMPREHENSIVE METABOLIC PANEL) (07/15/2020 11:33 AM CDT) SODIUM 141 133 - 145 mmol/L 07/15/2020 1:30 PM T [facility] POTASSIUM 3.9 3.5 - 5.1 mmol/L 07/15/2020 1:30 PM T [facility] CHLORIDE 106 96 - 108 mmol/L 07/15/2020 1:30 PM T [facility] CO2, VENOUS 29 21 - 32 mmol/L 07/15/2020 1:30 PM [facility] ANION GAP 9.9(L) 10.0 - 20.0 mmol/L 07/15/2020 1:30 PM T [facility] GLUCOSE 86 83 - 110 mg/dL 07/15/2020 1:30 PM [facility] BUN 19 6 - 19 mg/dL 07/15/2020 1:30 PM [facility] CREATININE, BLOOD 1.20 0.50 - 1.30 mg/dL 07/15/2020 1:30 PM [facility] BUN/CREATININE RATIO 16 12 - 20 ratio 07/15/2020 1:30 PM [facility] TOTAL PROTEIN 7.0 6.0 - 8.2 g/dL 07/15/2020 1:30 PM [facility] ALBUMIN 3.7 3.4 - 4.8 g/dL 07/15/2020 1:30 PM [facility] CALCIUM 9.1 8.8 - 10.0 mg/dL 07/15/2020 1:30 PM [facility] T BILI 0.5 0.0 - 1.0 mg/dL 07/15/2020 1:30 PM [facility] SGOT (AST) 18 0 - 37 U/L 07/15/2020 1:30 PM [facility] SGPT (ALT) 27 12 - 55 U/L 07/15/2020 1:30 PM [facility] ALKALINE PHOSPHATASE 48 39 - 117 U/L 07/15/2020 1:30 PM [facility] GFR, EST. NONAFRICAN >60 07/15/2020 1:30 PM [facility] Comment: Reference interval for MDRD GFR: GFR >=60: Satisfactory kidney function GFR <60: Chronic kidney disease GFR <15: Kidney failure Estimated GFR may be less reliable in patients >70yr, women, patients with serious comorbid conditions, or patients with extremes of body size, muscle mass, or nutritional status. Revised 02/14/08 (National Kidney Disease Education Program) GFR, EST. >60 >=60 020 1:30 PM [facility] Comment: Reference interval for MDRD GFR: GFR >=60: Satisfactory kidney function GFR <60: Chronic kidney disease GFR <15: Kidney failure Estimated GFR may be less reliable in patients >70yr, women, patients with serious comorbid conditions, or patients with extremes of body size, muscle mass, or nutritional status. Revised 02/14/08 (National Kidney Disease Education Program) Blood Venipuncture / Unknown 07/15/2020 11:33 AM CDT 07/15/2020 11:[address] [facility] - 07/15/2020 1:30 PM T Venipuncture should occur prior to sulfasalazine and/or sulfapyridine administration due to the potential for falsely depressed results for ALT and AST. ??Glucose can be falsely depressed after administration of sulfasalazine, and falsely elevated with administration of sulfapyridine. us Freddy Alvarado MD CHEMISTRY ORDERABLES Final Result [facility] [address] [place] [address] documented in this encounter Visit Diagnoses Diagnosis Carotid stenosis, asymptomatic, right- Primary documented in this encounter Additional Health Concerns Assessment Noted Time PHQ-9 Depression Total Score: 0 07/01/20 20 11:00 AM CDT documented as of this encounter Care Teams Electrical Manufacturing Engineer Relationship Specialty Start Date End Date Pelon Menard MD [address] [place] [address] [address] [place] [address] PCP - General Internal Medicine 06/13/18 Ck Kerr MD [address] [place] [address] [address] [place] [address] Consulting Physician General Surgery 08/01/18 documented as of this encounter
--- OUTSIDE RECORDS SUMMARY | 2024-12-13 17:59 | XMS_ITS | Referral Summary ---
Author Organization [facility] Address [address] [place] [address] Care Team Providers Care Onion Farmer Name Role Phone Pelon Menard MD Primary Care Provider [phone] [phone] Encounters Date Type Department Care Team Description 12/11/2024 Telephone [facility] Card[facility] [address] [facility] 8th [place] [address] [place] [address] Mitchell Perez MD Medical Records Request 09/19/2024 10:45 AM CDT Office Visit [facility] [address] [facility] [address] [place] [address] Mitchell Perez MD 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 (Primary Dx) from Last 3 Months Allergies No known active allergies Medications allopurinoL (ZYLOPRIM) 300 mg tablet daily 0 Active trospium (SANCTURA) 20 mg tablet daily 0 Active indapamide (LOZOL) 1.25 mg tablet handkerchief cutter before breakfast 2 Active isosorbide mononitrate ER (IMDUR) 120 mg 24 hr tablet daily Between 6 & 8 PM 2 Active mometasone (ELOCON) 0.1 % cream as needed 2 Active olmesartan (BENICAR) 40 mg tablet 2 Active multivitamin capsule Take 1 capsule by mouth 2 (two) times a day Active omega 8-mvw-omi-fish oil 100-160-1,000 mg capsule Take 2,000 mg by mouth 2 (two) times a day Active coenzyme Q10 200 mg capsule Take 1 capsule (200 mg total) by mouth 2 (two) times a day Active aspirin 81 mg chewable tablet Take 1 tablet (81 mg total) by mouth daily Active vitamin D3-vitamin K2 1,250-200 mcg capsule Take 1 tablet by mouth handkerchief cutter before breakfast Active amLODIPine (NORVASC) 5 mg tablet Take 1 tablet (5 mg total) by mouth daily 90 tablet 3 2 Active terazosin (HYTRIN) 2 mg capsule Take 1 capsule (2 mg total) by mouth daily Active cholecalciferol (VITAMIN D-3) 22217 unit tablet Take 1 tablet (50,000 Units [...] any onset. Coronary artery disease invo lving cahuilla coronary artery of cahuilla heart without angina pectoris 08/17/2022 Chest pain 02/19/2022 Overview (02/19/2022): Added automatically from request for surgery [id number] Papilloma of left upper eyelid 01/29/2022 Assessment & Plan (01/29/2022 3:28 PM BENDER MACHINE): Benign appearance. Observe. Nuclear sclerotic cataract of both eyes 01/11/20 20 Assessment & Plan (02/17/2024 3:33 PM CDT): Stable on exam today. Pt will go to local optical for Srx. F/u annually. Assessment & Plan (02/14/2023 9:21 AM CDT): Stable OU. F/u annually. Assessment & Plan (01/29/2022 3:28 PM BENDER MACHINE): Stable. Observe. ATs prn. Renewed last SRx for pt. Assessment & Plan (01/26/2021 8:44 AM BENDER MACHINE): Stable. Re-evaluate annually. Assessment & Plan (01/11/2020 2:36 PM BENDER MACHINE): Surgery not yet indicated. rec observation. Offered SRx, pt declines. Re-evaluate in 1 year, sooner prn. Vitreous syneresis of both eyes 01/11/2020 Assessment & Plan (02/14/2023 9:21 AM CDT): Stable. Observe. Assessment & Plan (01/29/2022 3:28 PM BENDER MACHINE): Stable. Observe. Assessment & Plan (01/26/2021 8:44 AM BENDER MACHINE): S/s of retinal detachment reviewed, advised urgent evaluation with any onset. Assessment & Plan (01/11/2020 2:36 PM BENDER MACHINE): S/s of retinal detachment reviewed, advised urgent evaluation with any onset. Resolved Problems Problem Noted Date Diagnosed Date Resolved Date Contact blepharoconjunctivitis of right eye 06/12/2019 01/11/2020 Assessment & Plan (06/12/2019 9:28 AM CDT): Start Tobradex BID right eye (OD), apply inside the eye and (with cotton swab) to the right lower eyelid (RLL) BID. Dc Lotemax. Pt ed on precautionary measures. Social History Tobacco Use Types Packs/Day Years [...] on file Legal Sex Male 3:06 PM BENDER MACHINE Gender Identity Not on file Sexual Orientation [...] 09/19/2024 10:45 AM CDT Plan of Treatment Not on file Medical Devices Implanted Type Area Enamel Drier Device Identifier Shelf Expiration Date Model / Serial / Lot Vas[employer] Ltd [facility] Device 7fr Closure Celt Acd Vascular Sterile Latex Free Disposable Priscilla - [id number] - [id number] Implanted:Qty: 1 on 02/26/2022 by Mitchell Perez MD at [facility] Other - see comments Right: Groin [employer] 05/15/2023 KCLT-07 / [id number] / [id number] Resolute [place] Ux 3.0x18mm Vaughn Stent [id number] - [id number] - [id number] Implanted:Qty: 1 on 02/26/2022 by Mitchell Perez MD at [facility] Stent N/A: Coronary Medtronic Inc 12/06/2024 [id number] / [id number] / [id number] Medtronic Usa Inc X [id number] Resolute Roger 3mm 2.1-2.7fr 8mm 140cm Rapid Exchange Radiopaque 1 - [id number] - [id number] Implanted:Qty: 1 on 02/26/2022 by Mitchell Perez MD at [facility] Stent N/A: Coronary Medtronic Inc 10/15/2024 [id number] 8UX / [id number] / [id number] Insurance [employer] MD MEDICARE [employer] [facility] Advance Directives For more information, please contact: [phone] * Full Code (Latest Code Status on File) Date Activated Date Inactivated Comments 02/26/2022 1:27 PM 02/26/2022 8:11 PM Care Teams Onion Farmer Relationship Specialty Start Date End Date Pelon Menard MD [address] [address] PCP - General Internal Medicine 05/07/19
--- OUTSIDE RECORDS SUMMARY | 2024-12-13 17:59 | XMS_ITS | Encounter Summary ---
Author Organization [facility] Address [address] [place] [address] Phone Care Team Providers Care Supervisor Process Testing Name Role Phone Pelon Menard MD Primary Care Provider [phone] [phone] Reason for Visit * Reason Onset Date Comments Medical Records Request 12/11/2024 Encounter Details Date Type Department Care Team (Late st Contact Info) Description 12/11/2024 Telephone [facility] Cardiology [address] [place] [address] [place] [address] Mitchell Perez MD [address] [place] [address] Medical Records Request Social History Tobacco Use Types Packs/Day Years Used Date Smoking Tobacco: Never Smokeless Tobacco: Never AUDIT-C Answer Date Recorded Q1: How often [...] on file 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
== END 2024-12-11 11:45 | disposition home or self-care (01) ==
LOC: ANHSURGERY 11:45
PROVIDERS: Visit Provider Orthopaedic Surgery
DX: M17.11 Unilateral primary osteoarthritis, right knee (principal); Z01.812 Encounter for preprocedural laboratory examination
CPT/HCPCS: 80048; 80307; 81003; 82040; 83036; 85025; 85610; 85730; 87641

== ENCOUNTER 2024-12-27 08:17 | Observation (INO) | payer MEDICARE, SELFPAY ==
[2024-12-11 12:04] VITALS: BMI 30.6
[2024-12-11 12:27] VITALS: BP 166/79; PULSE 79; RESP 16; TEMP 36.8; O2SAT 100
--- NOTE | 2024-12-11 12:48 | PC.NURSE ---
Report to the Outpatient Waiting Room, entrance under the green pavilion located off [facility], at time __6:00AM on date __12/25/24 . Planned Procedure Time: ___7:30AM .? Time changes happen often and if your time is changed the preop area will call you the afternoon before. - You and your visitor will be asked to self-screen and do not enter if you have any COVID symptoms. Please call surgeon if you need to reschedule. - A mask is optional within the hospital at this time. Patients may have clear liquids (water, carbonated beverages, clear teas, apple juice) until 3 hours prior to surgery (4:30AM) with a maximum of 20 ounces. - No food from midnight until time of surgery and no smoking. This includes no chewing gum, candy or mints. Take only the following medications with a SIP of water on the morning of surgery: ___NONE DO NOT STOP ANY OF YOUR OTHER PRESCRIPTION MEDICATIONS PRIOR TO SURGERY EXCEPT THE FOLLOWING Medications to discontinue per physician HOLD ASPIRIN PER DR BANKS HOLD ALL VITAMINS/SUPPLEMENTS PER DR BAKNS Please no make-up, nail english, hairspray, perfume, deodorant, or body powder the day of surgery.? No jewelry (including any body piercings) or valuables the day of surgery, leave them at home.? Please take a shower or bath the night before, or the morning of, surgery with an antibacterial soap.? Wear comfortable, loose fitting clothing.? - Jewelry must be removed prior to entering the operating room.? Rings and piercings that are not removed may be cut off. - The hospital will not accept responsibility for valuables.? - Please leave all valuables, including medications, at home the day of surgery. If you are going home after surgery, a licensed tour bus driver must drive you home.? - NO public transportation without another adult if you receive anesthesia. - We recommend that an adult stay with you for 24 hours following discharge. - We also recommend that you do not drive, make important decision, drink alcoholic beverages, or take any drugs that were not prescribed by your health care provider for at least 24 hours after your discharge time. Follow any additional instructions given to you from your surgeon. Telephone instructions given to ___PATIENT & SPOUSE and asked if any additional questions and then verbalized understanding. Patient advised to call surgeon office or pre surgery nurse liaison [phone] if any additional questions.
[2024-12-25] VITALS (14 sets, daily range): BP systolic 140–178; BP diastolic 66–92; PULSE 69–91; RESP 12–18; TEMP 36.1–36.8; O2SAT 93–100; BMI 29.2
--- OUTSIDE RECORDS SUMMARY | 2024-12-25 00:19 | XMS_ITS | Encounter Summary ---
Author Organization [facility] Address [address] [place] [address] Phone Care Team Providers Care Director Of Recruitment And Admissions Name Role Phone Pelon Menard MD Primary Care Provider + [phone] Ck Kerr MD Unavailable Reason for Visit * Reason Comments Medication Refill Encounter Details Date Type Department Care Team ([facility] Contact Info) Description 04/27/2022 Refill [facility] [address] [place] [address] Pelon Menard MD [address] [place] [address] [address] [place] [address] Medication Refill Social History Tobacco [...] documented as of this encounter Care Teams Director Of Recruitment And Admissions Relationship Specialty Start Date End Date Pelon Menard MD [address] [facility] [address] [place] [address] PCP - General Internal Medicine 06/13/18 Ck Kerr MD [address] [place] [address] [address] [place] [address] Consulting Physician General Surgery 08/01/18 documented as of this encounter
--- OUTSIDE RECORDS SUMMARY | 2024-12-25 00:19 | XMS_ITS | Encounter Summary ---
Author Organization [facility] Address [address] [place] [address] Phone Care Team Providers Care Safety Deposit Boxes Custodian Name Role Phone Pelon Menard MD Primary Care Provider [phone] [phone] Reason for Visit * Reason Onset Date Comments Medical Records Request 12/11/2024 Encounter Details Date Type Department Care Team (Late st Contact Info) Description 12/11/2024 Telephone [facility] Cardiology [address] 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
--- OUTSIDE RECORDS SUMMARY | 2024-12-25 00:19 | XMS_ITS | Encounter Summary ---
Author Organization [facility] Address [address] [place] [address] Phone Care Team Providers Care Tractor Trailer Driver Name Role Phone Pelon Menard MD Primary Care Provider + [phone] Ck Kerr MD Unavailable Reason for Visit * Reason Comments Medication Refill Encounter Details Date Type Department Care Team ([facility] Contact Info) Description 03/29/2022 Refill [facility] [address] [facility] [address] [place] [address] Pelon Menard MD [address] [place] [address] [address] [place] [address] Medication Refill Social History Tobacco [...] documented as of this encounter Care Teams Tractor Trailer Driver Relationship Specialty Start Date End Date Pelon Menard MD [address] [facility] [address] [place] [address] PCP - General Internal Medicine 06/13/18 Ck Kerr MD [address] [facility] [address] [place] [address] Consulting Physician General Surgery 08/01/18 documented as of this encounter
--- OUTSIDE RECORDS SUMMARY | 2024-12-25 00:19 | XMS_ITS | Continuity of Care Document ---
Author Organization [facility]. If a dditional information is needed, contact Health Information Management at [phone] Address [address] [place] [address] Phone Care Team Providers Care Assistant Activities Director Name Role Phone Unavailable Unavailable Unavailable Unavailable Unavailable Unavailable Unavailable Unavailable Unavailable Unavailable Unavailable Unavailable Unavailable Unavailable Unavailable Problems Syncope Onset:29-Jul-2023 Mental Status Cognitive function finding 29-Jul-2023 Functional Status Functional finding 30-Jul-2023 Allergies and Adverse Reactions No Known Allergies(Allergy) Onset: 29-Jul-2023 Medications regadenoson;Provider Administration Instructions:TO BE ADMINISTERED IN NUCLEAR MEDICINE (NM)VERIFIED BY: ___ RPh Quantity:1 Start:31-Jul-2023 Status:Discontinued Comments:Provider Administration Instructions:TO BE ADMINISTERED IN NUCLEAR MEDICINE (NM)VERIFIED BY: ___ RPh sodium chloride 9 MG/ML Injectable Solution Miko Chambers MD Start:0-Gcp-1121Bdf:26-Jan-20 Status:Discontinued electrolyte solution;1 EACH PROTOCOL Quantity:1 Miko Chambers MD Start:2-Vkl-9089Vde:26-Jan-20 Status:Discontinued Comments:[id number] Administration Instructions:1. Oral and tube route formulations are preferred over IVformulations and should be given first if the patient cantolerate.2. Notify Pharmacy for any needed doses not in Pyxis3. If NaPhosphate is not available for IV replacement, POTASSIUM CHLORIDE_K-DUOT20; 20 MILLIEQUIVALENT PROTOCOL Quantity:1 Miko Chambers MD Start:1-Sht-8126Ynz:26-Jan-20 Status:Discontinued Comments:[id number] Administration Instructions:Potassium Level 3-3.5 give 20 mEq Q3H x2 ORPotassium Level 2.5-2.9 give 40 mEq Q3H x5Ewitmqstb Level <2.5 Give IV Call Provider Adult Inpatient Electrolyte Protocol POTASSIUM CHLORIDE_K-DUOT20; 40 MILLIEQUIVALENT PROTOCOL Quantity:2 Miko Chambers MD Start:5-Igo-4998Sgy:26-Jan-20 Status:Discontinued Comments:[id number] Administration Instructions:Potassium Level 3-3.5 give 20 mEq Q3H x2 ORPotassium Level 2.5-2.9 give 40 mEq Q3H c5Xgxxdjhrz Level <2.5 Give IV Call Provider Adult Inpatient Electrolyte Protocol potassium bicarbonate 25 MEQ Effervescent Oral Tablet [Klor-Con/EF];25 MILLIEQUIVALENT PROTOCOL Quantity:1 Miko Chambers MD Start:7-Xtf-2040Vii:26-Jan-20 Status:Discontinued Comments:[id number] Administration Instructions:Potassium Level 3-3.5 give 25 mEq Q3H x2 ORPotassium Level 2.5-2.9 give 25 mEq Q3H z1Yexkztapk Level <2.5 Give IV Call ProviderPER FEED TUBE =======Adult Inpatient Electrolyte Protocol 100 ML potassium chloride 0. 2 MEQ/ML Injection;[id number] Administration Instructions:CENTRAL LINE ONLY K+ 3-3.5 give 20 mEq Q1H x2 ORK+ 2.5-2.9 give 20 mEq Q1H x4 ORK+ <2.5 give 20 mEq Q1H x4 Give IV Call Provider Adult Inpatient Electrolyte Protocol Miko Chambers MD Start:1-Xwk-0953Wlr:26-Jan-20 Status:Discontinued Comments:[id number] Administration Instructions:CENTRAL LINE ONLY K+ 3-3.5 give 20 mEq Q1H x2 ORK+ 2.5-2.9 give 20 mEq Q1H x4 ORK+ <2.5 give 20 mEq Q1H x4 Give IV Call Provider Adult Inpatient Electrolyte Protocol 100 ML potassium chloride 0. 2 MEQ/ML Injection;[id number] Administration Instructions:PERIPHERAL LINE K+ 3-3.5 give 20 mEq Q2H x2 ORK+ 2.5-2.9 give 20 mEq Q2H x4 ORK+ <2.5 give 20 mEq Q2H x4 Give IV Call Provider Adult Inpatient Electrolyte Protocol Miko Chambers MD Start:6-Yrz-7795Yzj:26-Jan-20 Status:Discontinued Comments:[id number] Administration Instructions:PERIPHERAL LINE K+ 3-3.5 give 20 mEq Q2H x2 ORK+ 2.5-2.9 give 20 mEq Q2H x4 ORK+ <2.5 give 20 mEq Q2H x4 Give IV Call Provider Adult Inpatient Electrolyte Protocol potassium phosphate 155 MG / sodium phosphate, dibasic 852 MG / sodium phosphate, monobasic 130 MG Oral Tablet [K-Phos Neutral];250 MILLIGRAM PROTOCOL Quantity:1 Miko Chambers MD Start:5-Lmf-6159Sht:26-Jan-20 Status:Discontinued Comments:[id number] Administration Instructions:Phosphorus Level 2-2.5 mg/dL give 1 tab q4h x2 ORPhosphorus Level 1.6-1.9 mg/dL give 2 tabs q4h x3 ORPhosphorus Level 1-1.5 mg/dL Give IV NaPhosPhosphorus Level <1 mg/dL *Give IV NaPhos Call Provider* potassium phosphate 155 MG / sodium phosphate, dibasic 852 MG / sodium phosphate, monobasic 130 MG Oral Tablet [K-Phos Neutral];500 MILLIGRAM PROTOCOL Quantity:2 Miko Chambers MD Start:7-Oph-1040Skw:26-Jan-20 Status:Discontinued Comments:[id number] Administration Instructions:Phosphorus Level 1.6-1.9 mg/dL give 2 tabs q4h x3 ORPhosphorus Level 1-1.5 mg/dL Give IV NaPhosPhosphorus Level <1 mg/dL *Give IV NaPhos Call Provider* Adult Inpatient Electrolyte Protocol Neutra-Phos;1 PACKET PROTOCO L Quantity:1 Miko Chambers MD Start:3-Pyp-2127Eeu:26-Jan-20 Status:Discontinued Comments:[id number] Administration Instructions:Phosphorus Level 2-2.5 mg/dL give 1 pkt q4h x2 ORPhosphorus Level 1.6-1.9 mg/dL give 2 pkts q4h x3 ORPhosphorus Level 1-1.5 mg/dL Give IV NaPhosPhosphorus Level <1 mg/dL *Give IV NaPhos Call Provider* Neutra-Phos;2 PACKET PROTOCO L Quantity:2 Miko Chambers MD Start:6-Cxc-5652Xul:26-Jan-20 Status:Discontinued Comments:[id number] Administration Instructions:Phosphorus Level 1.6-1.9 mg/dL give 2 pkts q4h x3 ORPhosphorus Level 1-1.5 mg/dL Give IV NaPhosPhosphorus Level <1 mg/dL *Give IV NaPhos Call Provider* Adult Inpatient Electrolyte Protocol 100 ML sodium chloride 9 MG/ ML Injection;[id number] Administration Instructions:Phosphorus Level 2-2.5 mg/dL infuse 20 mmol over 4 hrs x1OR Phosphorus Level 1-1.9 mg/dL infuse 40 mmol over 6 hrs u2Kylisrvbwd Level <1 mg/dL infuse 30 mmol over 4 hrs x2Give IV Call Provider Miko Chambers MD Start:7-Xpn-3367Yjn:26-Jan-20 Status:Discontinued Comments:[id number] Administration Instructions:Phosphorus Level 2-2.5 mg/dL infuse 20 mmol over 4 hrs x1OR Phosphorus Level 1-1.9 mg/dL infuse 40 mmol over 6 hrs x3Wprberngcd Level <1 mg/dL infuse 30 mmol over 4 hrs x2Give IV Call Provider 100 ML sodium chloride 9 MG/ ML Injection;[id number] Administration Instructions:Phosphorus Level 1-1.9 mg/dL infuse 40 mmol over 6 hrs c8Azwdzwsomo Level <1 mg/dL infuse 30 mmol over 4 hrs x2Give IV Call Provider Adult Inpatient Electrolyte Protocol Miko Gutierrez A MD Start:0-Xsk-1881Bhz:26-Jan-20 Status:Discontinued Comments:[id number] Administration Instructions:Phosphorus Level 1-1.9 mg/dL infuse 40 mmol over 6 hrs y4Gnniaragzm Level <1 mg/dL infuse 30 mmol over 4 hrs x2Give IV Call Provider Adult Inpatient Electrolyte Protocol 100 ML sodium chloride 9 MG/ ML Injection;[id number] Administration Instructions:Phosphorus Level <1 mg/dL infuse 30 mmol over 4 hrs x2Give IV Call Provider Adult Inpatient Electrolyte Protocol *Notify Pharmacy for ANY doses* Miko Gutierrez A MD Start:8-Svt-1204Oft:26-Jan-20 Status:Discontinued Comments:[id number] Administration Instructions:Phosphorus Level <1 mg/dL infuse 30 mmol over 4 hrs x2Give IV Call Provider Adult Inpatient Electrolyte Protocol *Notify Pharmacy for ANY doses* magnesium oxide 400 MG Oral Tablet;800 MILLIGRAM PROTOCOL Quantity:2 Miko Chambers MD Start:0-Yki-6205Cje:26-Jan-20 Status:Discontinued Comments:[id number] Administration Instructions:Mag Level 1.3-1.5 mg/dL give 800mg PO Q12H x 2 ORMag Level 1-1.2 mg/dL Give IVMag Level <1 mg/dL Give IV Call Provider Adult Inpatient Electrolyte Protocol magnesium oxide 400 MG Oral Tablet;800 MILLIGRAM PROTOCOL Quantity:2 Miko Chambers MD Start:9-Pyc-0518Iho:26-Jan-20 Status:Discontinued Comments:[id number] Administration Instructions:Mag Level 1.3-1.5 mg/dL give 800mg PER FEEDTUBE Q12H x 2 ORMag Level 1-1.2 mg/dL Give IVMag Level <1 mg/dL Give IV Call Provider Adult Inpatient Electrolyte Protocol 50 ML magnesium sulfate 40 M G/ML Injection;[id number] Administration Instructions:Mag Level 1.3-1.5 mg/dL infuse 2 GM over 30 min x1 =====Adult Inpatient Electrolyte Protocol Recheck Serum Magnesiumfour (4) hours after last IV dose or next morning for oral Miko Chambers MD Start:2-Zre-7027Pmx:26-Jan-20 Status:Discontinued Comments:[id number] Administration Instructions:Mag Level 1.3-1.5 mg/dL infuse 2 GM over 30 min x1 =====Adult Inpatient Electrolyte Protocol Recheck Serum Magnesiumfour (4) hours after last IV dose or next morning for oral 100 ML magnesium sulfate 40 MG/ML Injection;[id number] Administration Instructions:Mag Level 1-1.2 mg/dL infuse 4 GM over 2 hours x1Mag Level <1 mg/dL infuse 4 GM over 2 hours x2 ANDCall Provider Adult Inpatient Electrolyte Protocol Miko Chambers MD Start:4-Yrx-8786Uar:26-Jan-20 Status:Discontinued Comments:[id number] Administration Instructions:Mag Level 1-1.2 mg/dL infuse 4 GM over 2 hours x1Mag Level <1 mg/dL infuse 4 GM over 2 hours x2 ANDCall Provider Adult Inpatient Electrolyte Protocol electrolyte solution;1 EACH PRN Quantity:1 Miko Chambers MD Start:7-Kkq-5600Cwk:25-Jan-20 Status:Discontinued Comments:[id number] Administration Instructions:PHARMACISTS: IMPORTANT !!Enter NEEDED following order set and discontinue this [id number] EBOS ELECTROLYTE PROTOCOL-STD electrolyte solution;1 EACH PRN Quantity:1 Rita Chahal MD Start:0-Xkl-3393Ngz:25-Jan-20 Comments:[id number] Administration Instructions:PHARMACISTS: IMPORTANT !!Enter NEEDED following order set and discontinue this tsymi1ISGIIN EBOS ELECTROLYTE PROTOCOL-STD sodium chloride 9 MG/ML Injectable Solution Rita Chahal MD Start:2-Cho-4635Tec:25-Jan-20 Status:Discontinued docusate sodium 100 MG Oral Capsule;100 MILLIGRAM BID PRN Quantity:1 Rita Chaahl MD Start:2-Qkn-3866Ecv:25-Jan-20 Status:Discontinued Comments:[id number] Administration Instructions:*Do NOT Crush, Split, or Open* ondansetron 2 MG/ML Injectab le Solution [Zofran];4 MILLIGRAM Q4H PRN Quantity:1 Rita Chahal MD Start:1-Afl-7257Fnb:25-Jan-20 Status:Discontinued Comments:[id number] Administration Instructions:OBTAIN FROM PYXIS FOR ALL MAITE AND PRN DOSES!!Single doses may be administered IV Push undiluted over atleast 30 seconds preferably over 2 to 5 minutes Social History Smoking Status Never smoked tobacco Recorded: 29-Jul-2023
--- OUTSIDE RECORDS SUMMARY | 2024-12-25 00:19 | XMS_ITS | Clinical Summary ---
Author Organization [facility] Address [address] [place] [address] Care Team Providers Care Perinatal Coordinator Name Role Phone Pelon Menard MD Primary Care Provider +1 -[phone] Allergies No known active allergies Medications allopurinoL (ZYLOPRIM) 300 mg tablet daily 0 Active trospium (SANCTURA) 20 mg tablet daily 0 Active indapamide (LOZOL) 1.25 mg tablet entry engineer before breakfast 2 Active isosorbide mononitrate ER (IMDUR) 120 mg 24 hr tablet daily Between 6 & 8 PM 2 Active mometasone (ELOCON) 0.1 % cream as needed 2 Active olmesartan (BENICAR) 40 mg tablet 2 Active multivitamin capsule Take 1 capsule by mouth 2 (two) times a day Active omega 3-nmn-aim-fish oil 100-160-1,000 mg capsule Take 2,000 mg by mouth 2 (two) times a day Active coenzyme Q10 200 mg capsule Take 1 capsule (200 mg total) by mouth 2 (two) times a day Active aspirin 81 mg chewable tablet Take 1 tablet (81 mg total) by mouth daily Active vitamin D3-vitamin K2 1,250-200 mcg capsule Take 1 tablet by mouth entry engineer before breakfast Active amLODIPine (NORVASC) 5 mg tablet Take 1 tablet (5 mg total) by mouth daily 90 tablet 3 2 Active terazosin (HYTRIN) 2 mg capsule Take 1 capsule (2 mg total) by mouth daily Active cholecalciferol (VITAMIN D-3) 04396 unit tablet Take 1 tablet (50,000 Units [...] any onset. Coronary artery disease invo lving [place] coronary artery of [place] heart without angina pectoris 08/17/2022 Chest pain 02/19/2022 Overview (02/19/2022): Added automatically from request for surgery [id number] Papilloma of left upper eyelid 01/29/2022 Assessment & Plan (01/29/2022 3:28 PM SLOT AMBASSADOR): Benign appearance. Observe. Nuclear sclerotic cataract of both eyes 01/11/20 20 Assessment & Plan (02/17/2024 3:33 PM CDT): Stable on exam today. Pt will go to local optical for Srx. F/u annually. Assessment & Plan (02/14/2023 9:21 AM CDT): Stable OU. F/u annually. Assessment & Plan (01/29/2022 3:28 PM SLOT AMBASSADOR): Stable. Observe. ATs prn. Renewed last SRx for pt. Assessment & Plan (01/26/2021 8:44 AM SLOT AMBASSADOR): Stable. Re-evaluate annually. Assessment & Plan (01/11/2020 2:36 PM SLOT AMBASSADOR): Surgery not yet indicated. rec observation. Offered SRx, pt declines. Re-evaluate in 1 year, sooner prn. Vitreous syneresis of both eyes 01/11/2020 Assessment & Plan (02/14/2023 9:21 AM CDT): Stable. Observe. Assessment & Plan (01/29/2022 3:28 PM SLOT AMBASSADOR): Stable. Observe. Assessment & Plan (01/26/2021 8:44 AM SLOT AMBASSADOR): S/s of retinal detachment reviewed, advised urgent evaluation with any onset. Assessment & Plan (01/11/2020 2:36 PM SLOT AMBASSADOR): S/s of retinal detachment reviewed, advised urgent [...] Type Department Care Team Description 12/11/2024 Telephone [facility] Cardiology [address] [facility] 8th [place] [address] [place] [address] Mitchell Perez MD Medical Records Request from Last 3 Months Surgical History Surgery [...] on file Legal Sex Male 3:06 PM SLOT AMBASSADOR Gender Identity Not on file Sexual Orientation [...] Assessment 02/26/2023 02/26/2022 Influenza Vaccine (#1) 2024 , 07/29/2020, 08/25/2019, Additional history exists DTaP/Tdap/Td Vaccine (2 - Td or Tdap) 12/13/2029 12/13/2019 Zoster Vaccine Completed 12/06/2019, 100 03/2019, 09/07/2012 Pneumococcal vaccine 65+ Completed 020, 12/14/2018, 09/09/2010 Medical Devices Implanted Type Area Technical Support Assistant Device Identifier Shelf Expiration Date Model / Serial / Lot Vasorum Ltd [facility] Troyt-07 Device 7fr Closure Celt Acd Vascular Sterile Latex Free Disposable Priscilla - [id number] - [id number] Implanted:Qty: 1 on 02/26/2022 by SinMicthell ley MD at [facility] Other - see comments Right: Groshayne VASORUM LTD 05/15/2023 KCLT-07 / [id number] / [id number] Resolute [place] Ux 3.0x18mm Vaughn Stent [id number] - [id number] 1 - [id number] Implanted:Qty: 1 on 02/26/2022 by Mitchell Perez MD at [facility] Stent N/A: Coronary Medtronic Inc 12/06/2024 [id number] / [id number] / [id number] Medtronic Usa Inc X [id number] Resolute [place] 3mm 2.1-2.7fr 8mm 140cm Rapid Exchange Radiopaque 1 - [id number] 1 - [id number] Implanted:Qty: 1 on 02/26/2022 by Mitchell Perez MD at [facility] Stent N/A: Coronary Medtronic Inc 10/15/2024 [id number] / [id number] / [id number] Insurance MEDICARE [facility] MEDICARE [facility] Advance Directives For more information, please contact: [phone] * Full Code (Latest Code Status on File) Date Activated Date Inactivated Comments 02/26/2022 1:27 PM 02/26/2022 8:11 PM Care Teams Perinatal Coordinator Relationship Specialty Start Date End Date Pelon Menard MD [facility] [address] [address] PCP - General Internal Medicine 05/07/19
--- OUTSIDE RECORDS SUMMARY | 2024-12-25 00:19 | XMS_ITS | Encounter Summary ---
Author Organization [facility] Address [address] [place] [address] Phone Care Team Providers Care Window Decorator Name Role Phone Pelon Menard MD Primary Care Provider + [phone] Ck Kerr MD Unavailable Reason for Visit * Reason Onset Date Comments Medication Refill 12/24/2020 Encounter Details Date Type Department Care Team ([facility] st Contact Info) Description 12/24/2020 Refill [facility] [address] [place] [address] Pelon Menard MD [address] [place] [address] [address] [place] [address] Medication Refill Social History Tobacco [...] COVID-19? 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 [address] [place] [address] PCP - General Internal Medicine 06/13/18 Ck Kerr MD 1 [facility] [address] [place] [address] Consulting Physician General Surgery 08/01/18 documented as of this encounter
--- OUTSIDE RECORDS SUMMARY | 2024-12-25 00:19 | XMS_ITS | Referral Summary ---
Author Organization [facility] Address [address] [place] [address] Care Team Providers Care Biometric Technician Name Role Phone Pelon Menard MD Primary Care Provider +1 [phone] Encounters Date Type Department Care Team Description 12/11/2024 Telephone [facility] Cardiology [address] [facility] 8th [place] [address] [place] [address] Mitchell Perez MD Medical Records Request from Last 3 Months Allergies No known active allergies Medications allopurinoL (ZYLOPRIM) 300 mg tablet daily 0 Active trospium (SANCTURA) 20 mg tablet daily 0 Active indapamide (LOZOL) 1.25 mg tablet screw machine operator swiss type before breakfast 2 Active isosorbide mononitrate ER (IMDUR) 120 mg 24 hr tablet daily Between 6 & 8 PM 2 Active mometasone (ELOCON) 0.1 % cream as needed 2 Active olmesartan (BENICAR) 40 mg tablet 2 Active multivitamin capsule Take 1 capsule by mouth 2 (two) times a day Active omega 2-rzs-nfz-fish oil 100-160-1,000 mg capsule Take 2,000 mg by mouth 2 (two) times a day Active coenzyme Q10 200 mg capsule Take 1 capsule (200 mg total) by mouth 2 (two) times a day Active aspirin 81 mg chewable tablet Take 1 tablet (81 mg total) by mouth daily Active vitamin D3-vitamin K2 1,250-200 mcg capsule Take 1 tablet by mouth screw machine operator swiss type before breakfast Active amLODIPine (NORVASC) 5 mg tablet Take 1 tablet (5 mg total) by mouth daily 90 tablet 3 2 Active terazosin (HYTRIN) 2 mg capsule Take 1 capsule (2 mg total) by mouth daily Active cholecalciferol (VITAMIN D-3) 68134 unit tablet Take 1 tablet (50,000 Units [...] any onset. Coronary artery disease invo lving [place] coronary artery of [place] heart without angina pectoris 08/17/2022 Chest pain 02/19/2022 Overview (02/19/2022): Added automatically from request for surgery [id number] Papilloma of left upper eyelid 01/29/2022 Assessment & Plan (01/29/2022 3:28 PM MUSICAL INSTRUMENTS ASSEMBLER): Benign appearance. Observe. Nuclear sclerotic cataract of both eyes 01/11/20 20 Assessment & Plan (02/17/2024 3:33 PM CDT): Stable on exam today. Pt will go to local optical for Srx. F/u annually. Assessment & Plan (02/14/2023 9:21 AM CDT): Stable OU. F/u annually. Assessment & Plan (01/29/2022 3:28 PM MUSICAL INSTRUMENTS ASSEMBLER): Stable. Observe. ATs prn. Renewed last SRx for pt. Assessment & Plan (01/26/2021 8:44 AM MUSICAL INSTRUMENTS ASSEMBLER): Stable. Re-evaluate annually. Assessment & Plan (01/11/2020 2:36 PM MUSICAL INSTRUMENTS ASSEMBLER): Surgery not yet indicated. rec observation. Offered SRx, pt declines. Re-evaluate in 1 year, sooner prn. Vitreous syneresis of both eyes 01/11/2020 Assessment & Plan (02/14/2023 9:21 AM CDT): Stable. Observe. Assessment & Plan (01/29/2022 3:28 PM MUSICAL INSTRUMENTS ASSEMBLER): Stable. Observe. Assessment & Plan (01/26/2021 8:44 AM MUSICAL INSTRUMENTS ASSEMBLER): S/s of retinal detachment reviewed, advised urgent evaluation with any onset. Assessment & Plan (01/11/2020 2:36 PM MUSICAL INSTRUMENTS ASSEMBLER): S/s of retinal detachment reviewed, advised urgent [...] on file Legal Sex Male 3:06 PM MUSICAL INSTRUMENTS ASSEMBLER Gender Identity Not on file Sexual Orientation [...] on file Medical Devices Implanted Type Area Alteration Inspector Device Identifier Shelf Expiration Date Model / Serial / Lot Vasorum Ltd Kclt-07 Device 7fr Closure Celt Acd Vascular Sterile Latex Free Disposable Priscilla - [id number] - [id number] Implanted:Qty: 1 on 02/26/2022 by Mitchell Perez MD at [facility] Other - see comments Right: Groin VASORUM LTD 05/15/2023 KCLT-07 / [id number] / [id number] Resolute [place] Ux 3.0x18mm Vaughn Stent [id number] - [id number] 1 - [id number] Implanted:Qty: 1 on 02/26/2022 by Mitchell Perez MD at [facility] Stent N/A: Coronary Medtronic Inc 12/06/2024 [id number] / [id number] / [id number] Medtronic Usa Inc X [id number] Resolute [place] 3mm 2.1-2.7fr 8mm 140cm Rapid Exchange Radiopaque 1 - [id number] 1 - [id number] Implanted:Qty: 1 on 02/26/2022 by Mitchell Perez MD at [facility] Stent N/A: Coronary Medtronic Inc 10/15/2024 [id number] / [id number] / [id number] Insurance [facility] Advance Directives For more information, please contact: [phone] * Full Code (Latest Code Status on File) Date Activated Date Inactivated Comments 02/26/2022 1:27 PM 02/26/2022 8:11 PM Care Teams Biometric Technician Relationship Specialty Start Date End Date Pelon Menard MD [address] [place] [address] PCP - General Internal Medicine 05/07/19
--- OUTSIDE RECORDS SUMMARY | 2024-12-25 00:19 | XMS_ITS | Encounter Summary ---
Author Organization [facility] Address [address] [place] [address] Phone Care Team Providers Care Box Bender Name Role Phone Pelon Menard MD Primary Care Provider + [phone] Ck Kerr MD Unavailable Reason for Visit * Reason Comments Medication Refill Encounter Details Date Type Department Care Team ([facility] Contact Info) Description 06/09/2020 Refill [facility] [address] [place] [address] Pelon Menard MD [address] [place] [address] Medication Refill Social History Tobacco Use [...] Total Score: 0 12/13/19 20 10:00 AM MATERIAL CLERK documented as of this encounter Care Teams Box Bender Relationship Specialty Start Date End Date Pelon Menard MD [address] [facility] [address] [place] [address] PCP - General Internal Medicine 06/13/18 Ck Kerr MD 1 [facility] [address] [place] [address] Consulting Physician General Surgery 08/01/18 documented as of this encounter
--- OUTSIDE RECORDS SUMMARY | 2024-12-25 00:19 | XMS_ITS | Encounter Summary ---
Author Organization [facility] Address [address] [place] [address] Phone Care Team Providers Care Roll Operator Name Role Phone Pelon Menard MD Primary Care Provider + [phone] Ck Kerr MD Unavailable Encounter Details Date Type Department Care Team (Late st Contact Info) Description 07/10/2020 Transcribe Orders [facility] PERIOP [address] [place] [address] Freddy Alvarado MD [address] [address] Carotid stenosis, asymptomatic, right (Primary [...] ABO TYPING AB 07/15/2020 1:57 PM CDT [facility] RH POS 07/15/2020 1:57 PM CDT [facility] ABSC NEG 07/15/2020 1:57 PM CDT [facility] Blood Venipuncture / Unknown 07/15/2020 11:33 AM CDT 07/15/2020 11:33 AM CDT us Freddy Alvarado MD BLOOD BANK ORDERABLES Edit ed Result - Final [facility] [address] [place] [address] * (ABNORMAL) CMP (COMPREHENSIVE METABOLIC PANEL) (07/15/2020 11:33 AM CDT) SODIUM 141 133 - 145 mmol/L 07/15/2020 1:30 PM T [facility] POTASSIUM 3.9 3.5 - 5.1 mmol/L 07/15/2020 1:30 PM T [facility] CHLORIDE 106 96 - 108 mmol/L 07/15/2020 1:30 PM T [facility] CO2, VENOUS 29 21 - 32 mmol/L 07/15/2020 1:30 PM [facility] ANION GAP 9.9(L) 10.0 - 20.0 mmol/L 07/15/2020 1:30 PM T [facility] GLUCOSE 86 83 - 110 mg/dL 07/15/2020 1:30 PM [facility] BUN 19 6 - 19 mg/dL 07/15/2020 1:30 PM [facility] CREATININE, BLOOD 1.20 0.50 - 1.30 mg/dL 07/15/2020 1:30 PM [facility] BUN/CREATININE RATIO 16 12 - 20 ratio 07/15/2020 1:30 PM [facility] TOTAL PROTEIN 7.0 6.0 - 8.2 g/dL 07/15/2020 1:30 PM [facility] ALBUMIN 3.7 3.4 - 4.8 g/dL 07/15/2020 1:30 PM [facility] CALCIUM 9.1 8.8 - 10.0 mg/dL 07/15/2020 1:30 PM [facility] T BILI 0.5 0.0 - 1.0 mg/dL 07/15/2020 1:30 PM [facility] SGOT (AST) 18 0 - 37 U/L 07/15/2020 1:30 PM [facility] SGPT (ALT) 27 12 - 55 U/L 07/15/2020 1:30 PM [facility] ALKALINE PHOSPHATASE 48 39 - 117 U/L 07/15/2020 1:30 PM [facility] GFR, EST. NONAFRICAN >60 07/15/2020 1:30 PM [facility] Comment: Reference interval for MDRD GFR: GFR >=60: Satisfactory kidney function GFR <60: Chronic kidney disease GFR <15: Kidney failure Estimated GFR may be less reliable in patients >70yr, women, patients with serious comorbid conditions, or patients with extremes of body size, muscle mass, or nutritional status. Revised 02/14/08 (National Kidney Disease Education Program) GFR, EST. >60 >=60 020 1:30 PM [facility] Comment: Reference interval for MDRD GFR: GFR [...] 11:33 AM CDT 07/15/2020 11:[address] [facility] - 07/15/2020 1:30 PM T Venipuncture should occur prior to sulfasalazine and/or sulfapyridine administration due to the potential for falsely depressed results for ALT and AST. ??Glucose can be falsely depressed after administration of sulfasalazine, and falsely elevated with administration of sulfapyridine. us Freddy Alvarado MD CHEMISTRY ORDERABLES Final Result [facility] [address] [place] [address] documented in this encounter Visit Diagnoses Diagnosis Carotid stenosis, asymptomatic, right- Primary documented in this encounter Additional Health Concerns Assessment Noted Time PHQ-9 Depression Total Score: 0 07/01/20 20 11:00 AM CDT documented as of this encounter Care Teams Roll Operator Relationship Specialty Start Date End Date Pelon Menard MD [address] [place] [address] [address] [place] [address] PCP - General Internal Medicine 06/13/18 Ck Kerr MD [address] [place] [address] [address] [place] [address] Consulting Physician General Surgery 08/01/18 documented as of this encounter
--- OUTSIDE RECORDS SUMMARY | 2024-12-25 00:19 | XMS_ITS | Encounter Summary ---
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
--- OUTSIDE RECORDS SUMMARY | 2024-12-25 00:19 | XMS_ITS | Encounter Summary ---
Author Organization [facility] Address [address] [place] [address] Phone Care Team Providers Care Design Teacher Name Role Phone Pelon Menard MD Primary Care Provider + [phone] Ck Kerr MD Unavailable Encounter Details Date Type Department Care Team (Late st Contact Info) Description 08/18/2020 Transcribe Orders [facility] PERIOP [address] [place] [address] Freddy Alvarado MD [address] [address] Pre-op testing (Primary Dx) Social [...] - 17.4 g/dL 08/19/2020 11:19 AM CDT [facility] HEMATOCRIT (HCT) 37.6(L) 39.8 - 52.2 % 08/19/2020 11:19 AM CDT [facility] Blood No Phlebotomy Charged / Unknown 08/19/2020 10:30 AM CDT 08/19/2020 11:11 AM CDT us Freddy Alvarado MD HEMATOLOGY ORDERABLES Maricruz dill Result [facility] [address] [place] [address] documented in this encounter Visit Diagnoses Diagnosis Pre-op testing- Primary Preoperative examination, unspecified documented in this encounter Additional Health Concerns Assessment Noted Time PHQ-9 Depression Total Score: 0 08/18/20 20 11:00 AM CDT documented as of this encounter Care Teams Design Teacher Relationship Specialty Start Date End Date Pelon Menard MD [address] [facility] [address] [place] [address] PCP - General Internal Medicine 06/13/18 Ck Kerr MD 1 [facility] [address] [place] [address] Consulting Physician General Surgery 08/01/18 documented as of this encounter
--- OUTSIDE RECORDS SUMMARY | 2024-12-25 00:19 | XMS_ITS | Clinical Summary ---
Author Organization [facility] Address [address] [facility] [address] [place] [address] Phone Care Team Providers Care Physical Therapy Assistant Instructor Name Role Phone Pelon Menard MD Primary Care Provider +- [phone] Ck Kerr MD Unavailable Allergies No known active allergies Medications [place]ta-3 Fatty Acids (FISH OIL PO) Take 1,000 [...] this topic Medical Devices Implanted Type Area Wireless Sales Representative Device Identifier Shelf Expiration Date Model / Serial / Lot Patch Bovine Vascu Guard 1 X 6cm [id number] - [id number] Implanted:Qty: 1 on 08/20/2020 by Freddy Alvarado MD at [facility] IMPLANT Right: Carot[employer] 12/26/2024 [id number] / / [id number] Insurance MEDICARE [facility] Advance Directives * Full Code (Latest Code Status on File) Date Activated Date Inactivated Comments 08/20/2020 5:22 PM 08/21/2020 3:42 PM CPR-Full Harry atment: FULL ARREST: Attempt Resuscitation/CPR wit intubation and mechanical ventilation. PRE-ARREST: Use entire range of life support measures to stabilize the patient. Care Teams Physical Therapy Assistant Instructor Relationship Specialty Start Date End Date Pelon Menard MD [address] [facility] [address] [place] [address] PCP - General Internal Medicine 06/13/18 Ck Kerr MD 1 [facility] [address] [place] [address] Consulting Physician General Surgery 08/01/18
--- OUTSIDE RECORDS SUMMARY | 2024-12-25 00:19 | XMS_ITS | Encounter Summary ---
Author Organization [facility] Address [address] [place] [address] Phone Care Team Providers Care Chief Digital Media Officer Name Role Phone Pelon Menard MD Primary Care Provider + [phone] Ck Kerr MD Unavailable Encounter Details Date Type Department Care Team ([facility] Contact Info) Description 10/18/2022 Telephone [facility] [address] [place] [address] Pelon Menard MD [address] [address] Social History Tobacco Use Types [...] Coronavirus/COVID-19? No / Unsure 09/28/2022 12:00 PM VEGETABLE GRADER documented as of this encounter Miscellaneous Notes * Telephone Encounter - Rut Argueta CMA - 10/19/2022 2:25 PM CST [address] Maria M with [facility] called to inform office that they received requested documents. By: Rut Argueta CMA; 10/19/2022, 2:26 PM VEGETABLE GRADER TABLE GRADER * Telephone Encounter - Carmian Ge LPN - 10/19/2022 1:41 PM CST Returned call and left a message for them to call me back. TABLE GRADER * Telephone Encounter - Gissell Huffman - 10/18/2022 11:15 AM CST Maria M/[facility] called regarding the documents that were sent via [employer] about the letter of competency. stated she is waiting for over a week to hear from someone. [phone] TABLE GRADER documented in this encounter Plan of Treatment Not on file documented as of this encounter Visit Diagnoses Not on filedocumented in this encounter Additional Health Concerns Assessment Noted Time PHQ-9 Depression Total Score: 0 08/18/20 21 3:00 PM CDT documented as of this encounter Care Teams Chief Digital Media Officer Relationship Specialty Start Date End Date Pelon Menard MD [address] [facility] [address] [place] [address] PCP - General Internal Medicine 06/13/18 Ck Kerr MD 1 [facility] [address] [place] [address] Consulting Physician General Surgery 08/01/18 documented as of this encounter
--- OUTSIDE RECORDS SUMMARY | 2024-12-25 00:19 | XMS_ITS | Clinical Summary ---
Author Organization [facility] Address [address] [place] [address]. [place] [address] [place] [address] Care Team Providers Care Metal Stamper Name Role Phone Freddy Alvarado MD Unavailable [phone] Pelon Menard MD Primary Care Provider +1- [phone] Allergies No known active allergies Medications trospium 20 MG tabletIndication s:Overactive bladder Take 1 tablet (20 mg total) by mouth 2 (two) times daily. 180 tablet 11/08/2018 Active aspirin EC (ECOTRIN) 81 MG tablet Take 1 tablet (81 mg total) by mouth daily. Active Cholecalciferol (VITAMIN D3 ULTRA POTENCY) 1.25 MG (10756 UT) Tab Take 1 tablet by mouth [...] Info) Description 04/18/2025 2:15 PM CDT Appointment [facility] [address] [place] [address] 04/18/2025 2:45 PM CDT Office Visit [facility] [address] [place] [address] Freddy Alvarado MD [address] [facility] [address] [place] [address] Health Maintenance Due Date Last Done Comments [...] age to complete this topic Insurance MEDICARE [facility] Care Teams Metal Stamper Relationship Specialty Start Date End Date Pelon Menard MD [address] [address] PCP - General INTERNAL MEDICINE 01/25/23 Freddy Alvarado MD [address] [address] VASCULAR SURGERY 01/25/23
[2024-12-25] MEDS: TRANEXAMIC ACID 1,000MG/ISO100 1,000 MG/100 ML BAG 200 MG IVPB (06:56)
[2024-12-25] MEDS: ACETAMINOPHEN 500 MG TABLET 1000 MG PO (06:56)
--- NOTE | 2024-12-25 06:57 | P.PNAN_ITS ---
Anes - Initial Pre Proc Eval Procedure: Operation Date: 12/25/24 07:30 Proposed Procedures p Right Total Knee Arthroplasty - Ulices Finn MD Date/Time: 12/25/24 06:57 Surgeon: Ulices Finn MD Pre Op Diagnosis: right knee DJD Patient Data Age: 79 Gender: M Height: 1.75 m Weight: 90 kg Last Vital Signs Temp 36.6 C 12/25/24 06:52 Pulse 69 12/25/24 06:52 Resp 16 12/11/24 12:27 BP 159/78 H 12/25/24 06:52 Pulse Ox 100 12/25/24 06:52 O2 Del Method Room Air 12/25/24 06:52 Allergies Allergy/AdvReac Type Severity Reaction Status Date / Time No Known Drug Allergies Allergy Unknown Unknown Verified 12/25/24 06:41 Home Medications ?Medication ?Instructions ?Recorded ?Confirmed ?Type allopurinol 300 mg tablet 300 mg PO DAILY 04/28/23 12/25/24 History amlodipine 5 mg tablet 5 mg PO .EVENING 04/28/23 12/25/24 History aspirin 81 mg tablet,delayed 81 mg PO DAILY 04/28/23 12/25/24 History release indapamide 1.25 mg tablet 1.25 mg PO DAILY 04/28/23 12/25/24 History isosorbide mononitrate 120 mg 120 mg PO .EVENING 04/28/23 12/25/24 History tablet,extended release 24 hr olmesartan 40 mg tablet 40 mg PO DAILY 04/28/23 12/25/24 History trospium 20 mg tablet 20 mg PO BID 04/28/23 12/25/24 History atorvastatin 40 mg tablet 40 mg PO DAILY 12/11/24 12/25/24 History chlorhexidine gluconate 4 % 1 applic topical ONCE #237 mL 12/11/24 12/14/24 Rx topical liquid (Hibiclens) cholecalciferol (vitamin D3) 50 50 mcg PO DAILY 12/11/24 12/25/24 History mcg (2,000 unit) capsule coenzyme Q10 100 mg capsule 200 mg PO BID 12/11/24 12/25/24 History lactobacillus combination no.4 3 3,000 mmu cells PO DAILY 12/11/24 12/25/24 History billion cell capsule (Probiotic) multivitamin (Daily Multi-Vitamin 1 tablet PO DAILY 12/11/24 12/25/24 History tablet) omega-3 fatty acids 2,000 mg PO DAILY 12/11/24 12/25/24 History potassium chloride 20 mEq 10 meq PO BID 12/11/24 12/25/24 History tablet,extended release(part/cryst) Laboratory Tests 12/25/24 06:36 Blood Type Pending Antibody Screen Pending Patient hx anesthesia problems: none Family hx anesthesia problems: none Results Review: All pre-operative results and documents have been reviewed as part of the pre- operative evaluation. 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 Alvarado Right carotid stent placement [address] Garcia. 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 Informed Consent: The patient's anesthetic plan and its attendant risks and benefits were discussed with the patient/family/POA. Questions were solicited and answers provided to the satisfaction of the patient/family/POA.
--- NOTE | 2024-12-25 07:15 | WPDHPUPDATE1 ---
History and Physical Update Update Date/Time: 12/25/24 07:15 History and Physical has been reviewed, including an updated exam of the patient. There are NO changes in the patient's condition. Risks, benefits, and alternatives have been discussed and questions answered. Patient agrees to proceed with procedure.
[2024-12-25] MEDS: ceFAZolin 2 GM/D5W 50 ML 2 GM/50 ML BAG IVPB ×3 (07:31→23:19)
[2024-12-25] MEDS: LACTATED RINGERS 1,000 ML 30 ML IV CONT ×2 (07:31→09:36)
--- NOTE | 2024-12-25 07:31 | WPDANESPNB ---
Anes - Peripheral Nerve Block Date/Time: 12/25/24 07:31 I have discussed with the patient/family/POA the placement of a peripheral nerve block for post-operative pain management, including associated risks, benefits, complications, and side effects. Alternative methods of post-operative analgesia were detailed. Questions were solicited and answers provided to the satisfaction of the patient/family/POA. Time-Out: A pre-procedural Time-Out was completed immediately before starting the procedure and confirmed: Patient Identification, Site, Procedure, Patient Position and the Availability of Requisite Equipment. Clinical Indications: Acute post-operative pain management requested by the operative surgeon. Nerve Block Insertion Note Anes-nerve block: adductor canal right Patient position: supine Skin prep: chlorhexidine Needle: 22 gauge, stimulating, insulated echogenic needle. Needle length: 80 mm Technique: ultrasound Technique comment: fent 50mcg Injectate: bupivacaine 0.5% with epi 5 mcg/ml (30ml no epi) and dexamethasone (mg) (4) Observations: tolerated well Complications: none Procedure start time:: 720 Procedure end time:: 727
[2024-12-25] MEDS: TRANEXAMIC ACID 1,000 MG/10 ML AMPUL 1000 MG IV PUSH (08:58)
[2024-12-25] MEDS: SODIUM CHLORIDE 0.9% IV 37.7 ML, MORPHINE SULFATE INJ (*CRX) 2 MG, ROPivacaine HCL 1% 2... INFILTRATE (09:01)
--- NOTE | 2024-12-25 09:26 | W.PM.PROC2 ---
Procedure Note - Detailed Date of Procedure 12/25/24 Pre-op Diagnosis right knee DJD Post-op Diagnosis Same Procedure Performed R TKA Surgeon Ulices Finn MD Anesthesia General Description of Procedure THE RIGHT KNEE WAS PREPPED AND DRAPED IN THE STERILE FASHION. THERE WAS A 10 DEGREE FLEXION CONTRACTURE. A MIDLINE SKIN INCISION WAS MADE. A MEDIAL PARAPATELLAR ARTHROTOMY WAS MADE. THE PATELLA WAS EVERTED. THERE WAS TRICOMPARTMENT DJD. THERE WAS MINIMAL PATELLA DJD. AN INTRAMEDULLARY JUAN MANUEL WAS PLACED IN THE FEMUR. A DISTAL FEMORAL CUT WAS MADE IN 5 DEGREES OF VALGUS REMOVING APPROXIMATELY 9 MM OF BONE FROM THE DISTAL FEMUR. THE FEMUR WAS SIZED TO 65. A 65 FEMORAL CUTTING BLOCK WAS PLACED IN 3 DEGREES OF EXTERNAL ROTATION AND IN ALIGNMENT WITH GISSEL'S LINE AND THE TRANSEPICONDYLAR AXIS. ANTERIOR POSTERIOR AND CHAMFER CUTS WERE MADE. THE CUTS WERE EXCELLENT. NEXT AN INTRAMEDULLARY CUTTING GUIDE WAS PLACED IN THE TIBIA. A TRANS TIBIAL CUT WAS MADE ALONG THE LONG AXIS OF THE TIBIA. APPROXIMATELY 10 MM OF BONE WAS REMOVED FROM THE HIGH SIDE OF THE TIBIA. THE TIBIA WAS THEN PLANED TO A SMOOTH SURFACE. POSTERIOR FEMORAL OSTEOPHYTES WERE REMOVED FROM THE FEMORAL CONDYLES. A 75 TIBIAL TRIAL WAS PLACED IN ALIGNMENT WITH THE 1/3 MEDIAL ASPECT OF THE TIBIAL TUBERCLE. THEN A 65 FEMORAL TRIAL COMPONENT WAS PLACED. BOTH HAD EXCELLENT FITS. EVENTUALLY A 10 MM CR POLYETHYLENE TRIAL COMPONENT WAS PLACED. THE KNEE WAS TAKEN THROUGH A RANGE OF MOTION. THE KNEE CAME OUT TO FULL EXTENSION. THERE WAS NO ABNORMAL TILT TO THE PATELLA. THERE WAS GOOD A/P AND VARUS/VALGUS STABILITY. THERE WAS NO EXCESSIVE ROLL BACK WITH FLEXION. THE TRIAL COMPONENTS WERE REMOVED. THEN A 65 FEMORAL COMPONENT AND 75 TIBIAL COMPONENT WITH A 10 CR POLYETHYLENE COMPONENT WERE CEMENTED INTO PLACE. ONCE THE CEMENT WAS HARD THE KNEE WAS TAKEN THROUGH A ROM AGAIN AND FOUND TO BE STABLE WITH NO PATELLA TILT NO EXCESSIVE ROLL BACK WITH FLEXION AND GOOD STABILITY WITH COMPLETE AND FULL EXTENSION. THE KNEE WAS IRRIGATED WITH STERILE BETADINE AND WATER FOR ABOUT 3 MINUTES. THE BLEEDERS WERE CAUTERIZED. THE ARTHROTOMY WAS REPAIRED WITH NUMBER 1 VICRYL. THE SUB CUTANEOUS LAYER WITH 2-0 VICRYL AND THE SKIN WITH NIKO. THE WOUND WAS WASHED AND A STERILE DRESSING WAS APPLIED. PATIENT WAS EXTUBATED. Estimated Blood Loss -150.0 Pathology None sent Complications No immediate complications Condition Stable Disposition PACU
[2024-12-25] MEDS: fentaNYL CITRATE INJ (*CRX) 100 MCG/2 ML VIAL 25 MCG IV PUSH ×6 (09:48→10:16)
--- NOTE | 2024-12-25 12:00 | ADMGEN ---
This patient, Ben Milner, was admitted to [facility] Surg Room 325-01. Patient/family oriented to hospital policies and general routines including ID bracelet, bed and alarms, visiting hours, pain management, procedures, bathroom and other care routines, personal items, smoking policy, room service/diet, and visiting hours. Information on how to activate the Rapid Response Team has been discussed. Patient/Family are encouraged to report perceived risks to care and to ask questions if they do not understand what they are told or what they should do.
[2024-12-25] MEDS: SODIUM CHLORIDE 0.9% IV 1,000 ML 125 ML IV CONT (12:50)
[2024-12-25] MEDS: ONDANSETRON INJ 4 MG/2 ML VIAL IV PUSH (12:53)
[2024-12-25] MEDS: IBUPROFEN IV 800 MG/200 ML 800 MG/200 ML BAG 400 MG IVPB (12:55)
[2024-12-25] MEDS: ASPIRIN 325 MG ENTERIC TABLET 650 MG PO (12:58)
[2024-12-25] MEDS: polyethylene glycoL 3350 17 GM POWD.PACK PO (12:58)
[2024-12-25] MEDS: FAMOTIDINE 20 MG TABLET PO ×2 (12:58→21:33)
[2024-12-25] MEDS: allopurinoL 300 MG TABLET PO (12:58)
[2024-12-25] MEDS: SENNA/DOCUSATE SODIUM TABLET 2 TAB PO ×2 (12:58→18:32)
[2024-12-25] MEDS: ATORVASTATIN 40 MG TABLET PO (12:58)
[2024-12-25] MEDS: CELECOXIB 200 MG CAPSULE PO ×2 (12:58→18:32)
[2024-12-25] MEDS: POTASSIUM CHLORIDE 10 MEQ ER TABLET PO ×2 (13:07→18:32)
[2024-12-25] MEDS: oxyCODONE/ACETAMINOPHEN (*CRX) 5-325 MG TABLET 1 TABLET PO ×3 (13:15→23:20)
[2024-12-25] MEDS: amLODIPine BESYLATE 5 MG TABLET PO (18:32)
[2024-12-26 00:25] VITALS: BP 151/83; PULSE 87; RESP 18; TEMP 36.9; O2SAT 98
[2024-12-26 05:29] VITALS: BP 141/78; PULSE 86; RESP 18; TEMP 36.8; O2SAT 100
[2024-12-26] MEDS: oxyCODONE/ACETAMINOPHEN (*CRX) 5-325 MG TABLET 1 TABLET PO ×3 (05:33→18:30)
[2024-12-26 08:32] LABS: Basophils Percent Auto 0.1 % (0.2-1.2); Hematocrit 25.7 % (42.0-52.0); Hemoglobin 8.8 g/dL (14.0-18.0); Immature Granulocyte Absolute 0.07 K/mm3 (0.00-0.031); Immature Granulocyte Percent A 0.5 % (0-0.5); Lymphocytes Absolute Auto 1.29 K/mm3 (0.9-3.2); Lymphocytes Percent Auto 8.3 % (18.3-44.2); Mean Corpuscular HGB Conc 34.2 g/dl (32-36); Mean Corpuscular Hemoglobin 33.5 pg (26-34); Mean Corpuscular Volume 97.7 fl (80-100); Mean Platelet Volume 11.4 fl (7.4-10.4); Monocytes Absolute Auto 1.6 K/mm3 (0.1-0.6); Monocytes Percent Auto 10.1 % (2.6-8.5); Neutrophils Absolute Auto 12.6 K/mm3 (1.3-6.7); Platelet Count Result 187 k/mm3 (150-375); Red Blood Count 2.63 M/mm3 (4.6-6.20); Red Cell Distribution Width 13.3 % (11.5-14.5); White Blood Count 15.5 K/mm3 (4.5-10.0)
[2024-12-26 08:42] LABS: Anion Gap 7 mmol/L (4-12); Blood Urea Nitrogen 17 mg/dL (9-20); Calcium 8.5 mg/dL (8.4-10.2); Carbon Dioxide 28 mmol/L (22-30); Chloride 97 mmol/L (98-107); Estimated CRCL calculation 61 ml/min; Estimated Glomerular Filt Rate > 60; Glucose 110 mg/dL (65-110); Potassium 3.9 mmol/L (3.4-5.0); Sodium 132 mmol/L (137-145)
[2024-12-26 10:26] VITALS: BP 139/74; PULSE 81; RESP 16; TEMP 37.3; O2SAT 100
[2024-12-26] MEDS: FAMOTIDINE 20 MG TABLET PO ×2 (10:35→21:02)
[2024-12-26] MEDS: POTASSIUM CHLORIDE 10 MEQ ER TABLET PO ×2 (10:35→17:23)
[2024-12-26] MEDS: INDAPAMIDE 1.25 MG TABLET PO (10:35)
[2024-12-26] MEDS: SENNA/DOCUSATE SODIUM TABLET 2 TAB PO ×2 (10:35→17:22)
[2024-12-26] MEDS: allopurinoL 300 MG TABLET PO (10:36)
[2024-12-26] MEDS: ATORVASTATIN 40 MG TABLET PO (10:36)
[2024-12-26] MEDS: OLMESARTAN MEDOXOMIL 20 MG TABLET 40 MG PO (10:36)
[2024-12-26] MEDS: ASPIRIN 325 MG ENTERIC TABLET 650 MG PO (10:36)
[2024-12-26] MEDS: CELECOXIB 200 MG CAPSULE PO ×2 (10:36→17:23)
[2024-12-26] MEDS: ceFAZolin 2 GM/D5W 50 ML 2 GM/50 ML BAG IVPB (10:37)
[2024-12-26] MEDS: polyethylene glycoL 3350 17 GM POWD.PACK PO (10:37)
[2024-12-26 13:29] VITALS: BP 145/69; PULSE 69; RESP 16; TEMP 36.7; O2SAT 100
--- NOTE | 2024-12-26 14:06 | P.PNOP_ITS ---
Progress Note: A&P Assessment and Plan (1) S/P total knee arthroplasty: Code(s): Z96.659 - Presence of unspecified artificial knee joint Status: Acute Assessment and Plan: POD 1 DOING WELL WITH GOOD PROGRESS WITH PT. OK TO DC HOME. HE WILL PREFORM DRESSING CHANGES NEEDED. HE WILL F/U IN 3 WEEKS. Subjective Subjective Date/Time Seen: 12/26/24 14:06 Interval history: POD 1 DOING WELL. GOOD PROGRESS WITH PT, PAIN WELL CONTROLLED. SOME DRESSING DRAINAGE. NO CALF PAIN Exam Extrem: Other: VSS AFEBRILE DRESSING WITH MILD DRAINAGE. NO ACTIVE BLEEDING FROM WOUND, NV INTACT NEG HOMANS SIGN CALF SOFT NON TENDER Objective Data Vital Signs Vital Signs: Vital Signs - 24 hr 12/25/24 21:29 12/26/24 00:25 12/26/24 05:29 Temperature 36.8 C 36.9 C 36.8 C Pulse Rate 88 87 86 Respiratory Rate 18 18 18 Blood Pressure 150/79 H 151/83 H 141/78 H Pulse Oximetry 98 98 100 12/26/24 10:26 Temperature 37.3 C Pulse Rate 81 Respiratory Rate 16 Blood Pressure 139/74 Pulse Oximetry 100 Intake/Output Intake/Output: Intake & Output 12/23/24 12/24/24 12/25/24 12/26/24 23:59 23:59 23:59 23:59 Intake Total 1130 2540 Balance 1130 2540 Meds/Results Medications: Active Medications Generic Name Dose Route Start Last Admin Trade Name Freq PRN Reason Stop Dose Admin Acetaminophen 500 mg 12/25/24 11:44 Acetaminophen 500 Mg Tablet PO Q6H PRN Pain Rated 1-3 Allopurinol 300 mg 12/25/24 11:44 12/26/24 10:36 Allopurinol 300 Mg Tablet PO 300 mg DAILY [facility] Administration Amlodipine Besylate 5 mg 12/25/24 18:00 12/25/24 18:32 Amlodipine Besylate 5 Mg Tablet PO 5 mg QPM [facility] Administration Aspirin 650 mg 12/25/24 11:44 12/26/24 10:36 Aspirin 325 Mg Enteric Tablet PO 650 mg DAILY [facility] Administration Atorvastatin Calcium 40 mg 12/25/24 11:44 12/26/24 10:36 Atorvastatin 40 Mg Tablet PO 40 mg DAILY [facility] Administration Celecoxib 200 mg 12/25/24 11:44 12/26/24 10:36 Celecoxib 200 Mg Capsule PO 200 mg BIDWM [facility] Administration Diazepam 5 mg 12/25/24 11:44 Diazepam (*Crx) 5 Mg Tablet PO Q8H PRN Spasms Diphenhydramine HCl 25 mg 12/25/24 11:44 Diphenhydramine Hcl Inj 50 Mg/Ml Vial IV PUSH Q6H PRN Itching Famotidine 20 mg 12/25/24 11:44 12/26/24 10:35 Famotidine 20 Mg Tablet PO 20 mg Q12HR [facility] Administration Hydromorphone HCl 1 mg 12/25/24 11:44 Hydromorphone Hcl Inj (*Crx) 1 Mg/Ml Syr IV PUSH Q2H PRN Breakthrough Pain Rated 7-10 or NPO Hydromorphone HCl 0.5 mg 12/25/24 11:44 Hydromorphone Hcl Inj (*Crx) 1 Mg/Ml Syr IV PUSH Q2H PRN Breakthrough Pain Rated 4-6 or NPO Ibuprofen 800 mg in 200 mls @ 400 mls/hr 12/25/24 11:44 12/25/24 13:25 Caldolor 800 Mg/200 Ml IVPB Infused Q6H PRN Infusion Breakthrough Pain Rated 1-3 or NPO Indapamide 1.25 mg 12/25/24 11:44 12/26/24 10:35 Indapamide 1.25 Mg Tablet PO 1.25 mg DAILY [facility] Administration Isosorbide Mononitrate 120 mg 12/26/24 18:00 Isosorbide Mononitrate 60 Mg Tab.Er.24h PO QPM [facility] Miscellaneous Information 0 each 12/25/24 00:01 Trospium Is Nonformulary - Can Patient Use From Home? XX 01/24/25 00:00 CLARIFY [facility] Naloxone HCl 0.1 mg 12/25/24 11:44 Naloxone Hcl 0.4 Mg/Ml Vial IV PUSH Q2M PRN Opiate Reversal Non-Formulary Medication 20 mg 12/25/24 11:44 Trospium PO 01/24/25 11:43 BID [facility] Olmesartan 40 mg 12/25/24 11:55 12/26/24 10:36 Olmesartan Medoxomil 20 Mg Tablet PO 40 mg QAM [facility] Administration Ondansetron HCl 4 mg 12/25/24 11:44 12/25/24 12:53 Ondansetron Inj 4 Mg/2 Ml Vial IV PUSH 4 mg Q4H PRN Administration Nausea And Vomiting Oxycodone/Acetaminophen 1 tablet 12/25/24 11:44 12/26/24 13:40 Oxycodone/Acetaminophen (*Crx) 5-325 Mg Tablet PO 1 tablet Q4H PRN Administration Pain Rated 4-6 Oxycodone/Acetaminophen 1 tab 12/25/24 11:44 Oxycodone/Acetaminophen (*Crx) 10-325 Mg Tablet PO Q6H PRN Pain Rated 7-10 Polyethylene Glycol 17 gm 12/25/24 11:44 12/26/24 10:37 Polyethylene Glycol 3350 17 Gm Powd.Pack PO 17 gm QAM [facility] Administration Potassium Chloride 10 meq 12/25/24 11:55 12/26/24 10:35 Potassium Chloride 10 Meq Er Tablet PO 10 meq BID [facility] Administration Senna/Docusate Sodium 2 tab 12/25/24 11:44 12/26/24 10:35 Senna/Docusate Sodium Tablet PO 2 tab BID [facility] Administration Radiology Results: ITS Impressions Knee X-Ray 12/25/24 09:59 IMPRESSION: 1. Total right knee arthroplasty in near-anatomic alignment. Labs Labs: Laboratory Results - last 24 hr 12/26/24 08:21 WBC 15.5 H RBC 2.63 L Hgb 8.8 L Hct 25.7 L MCV 97.7 MCH 33.5 MCHC 34.2 RDW 13.3 Plt Count 187 MPV 11.4 H Immature Gran % (Auto) 0.5 Neut % (Auto) 81.0 H Lymph % (Auto) 8.3 L [place] % (Auto) 10.1 H Eos % (Auto) 0.0 Baso % (Auto) 0.1 L Lymph # (Auto) 1.29 [place] # (Auto) 1.6 H Eos # (Auto) 0.0 Baso # (Auto) 0.0 Abs Immat Gran (auto) 0.07 H Absolute Neuts (auto) 12.6 H Absolute Nucleated RBC 0.000 Nucleated RBC % 0.0 Sodium 132 L Potassium 3.9 Chloride 97 L Carbon Dioxide 28 Anion Gap 7 BUN 17 Creatinine 0.83 Estim Creat Clear Calc 61 Estimated GFR > 60 Glucose 110 Calcium 8.5
--- NOTE | 2024-12-26 14:11 | WPDANESPN ---
Anes - Prog Note Post-Op Date/Time: 12/26/24 14:11 Cardiovascular status: normal Respiratory status: normal Airway patency: baseline Mental status: baseline Post-Op hydration status: normal Vital Signs: Last Vital Signs Temp 99.1 F 12/26/24 10:26 Pulse 81 12/26/24 10:26 Resp 16 12/26/24 10:26 BP 139/74 12/26/24 10:26 Pulse Ox 100 12/26/24 10:26 O2 Del Method Room Air 12/25/24 12:31 O2 Flow Rate 6 12/25/24 09:50 Pain Score (VAS): 0/10 I/O: Intake & Output 12/25/24 12/26/24 12/26/24 23:59 07:59 15:59 Intake Total 340 2540 Balance 340 2540 Laboratory Tests 12/26/24 08:21 12/26/24 08:21 12/26/24 08:21 WBC 15.5 H RBC 2.63 L Hgb 8.8 L Hct 25.7 L MCV 97.7 MCH 33.5 MCHC 34.2 RDW 13.3 Plt Count 187 MPV 11.4 H Immature Gran % (Auto) 0.5 Neut % (Auto) 81.0 H Lymph % (Auto) 8.3 L [place] % (Auto) 10.1 H Eos % (Auto) 0.0 Baso % (Auto) 0.1 L Lymph # (Auto) 1.29 [place] # (Auto) 1.6 H Eos # (Auto) 0.0 Baso # (Auto) 0.0 Abs Immat Gran (auto) 0.07 H Absolute Neuts (auto) 12.6 H Absolute Nucleated RBC 0.000 Nucleated RBC % 0.0 Sodium 132 L Potassium 3.9 Chloride 97 L Carbon Dioxide 28 Anion Gap 7 BUN 17 Creatinine 0.83 Estim Creat Clear Calc 61 Estimated GFR > 60 Glucose 110 Calcium 8.5 Post-procedural complaints: none Patient Feedback: Patient satisfied with anesthetic care.
[2024-12-26] MEDS: ISOSORBIDE MONONITRATE 60 MG TAB.ER.24H 120 MG PO (17:23)
[2024-12-26] MEDS: amLODIPine BESYLATE 5 MG TABLET PO (17:23)
[2024-12-26] MEDS: ACETAMINOPHEN 500 MG TABLET PO (21:02)
[2024-12-26 21:59] VITALS: BP 136/75; PULSE 79; RESP 18; TEMP 36.8; O2SAT 94
--- NOTE | ~2024-12-27 | XR_ITS ---
EXAMINATION: [id number] DATE: 12/25/2024 09:51 INDICATION: Total right knee arthroplasty. Postop. TECHNIQUE: 2 views of right knee were obtained. COMPARISON: Right knee radiographs 10/05/2024 FINDINGS: There is a total right knee arthroplasty without patellar resurfacing in near-anatomic alig nment. There is a tiny osteophyte of the patella. There is gas in the knee joint and soft tissues, co nsistent with recent surgery. Anterior skin kemi are noted. IMPRESSION: 1. Total right knee arthroplasty in near-anatomic alignment. Reviewed, dictated and finalized at location A. SS CLERK
[2024-12-27] MEDS: ACETAMINOPHEN 500 MG TABLET PO (05:54)
[2024-12-27] MEDS: diazePAM (*CRX) 5 MG TABLET PO (05:54)
[2024-12-27 06:00] VITALS: BP 128/84; PULSE 72; RESP 18; TEMP 36.8; O2SAT 97
[2024-12-27] MEDS: SENNA/DOCUSATE SODIUM TABLET 2 TAB PO (08:08)
[2024-12-27] MEDS: POTASSIUM CHLORIDE 10 MEQ ER TABLET PO (08:08)
[2024-12-27] MEDS: CELECOXIB 200 MG CAPSULE PO (08:08)
[2024-12-27] MEDS: OLMESARTAN MEDOXOMIL 20 MG TABLET 40 MG PO (08:08)
[2024-12-27] MEDS: polyethylene glycoL 3350 17 GM POWD.PACK PO (08:08)
[2024-12-27] MEDS: allopurinoL 300 MG TABLET PO (08:09)
[2024-12-27] MEDS: ATORVASTATIN 40 MG TABLET PO (08:09)
[2024-12-27] MEDS: INDAPAMIDE 1.25 MG TABLET PO (08:09)
[2024-12-27] MEDS: FAMOTIDINE 20 MG TABLET PO (08:09)
[2024-12-27] MEDS: ASPIRIN 325 MG ENTERIC TABLET 650 MG PO (08:09)
[2024-12-27] MEDS: oxyCODONE/ACETAMINOPHEN (*CRX) 5-325 MG TABLET 1 TABLET PO (08:16)
[2024-12-27 09:29] LABS: Basophils Absolute Auto 0.1 K/mm3 (0.0-0.1); Basophils Percent Auto 0.6 % (0.2-1.2); Eosinophils Absolute Auto 0.1 K/mm3 (0-0.3); Eosinophils Percent Auto 0.6 % (0-4.4); Hematocrit 25.7 % (42.0-52.0); Hemoglobin 8.5 g/dL (14.0-18.0); Immature Granulocyte Absolute 0.05 K/mm3 (0.00-0.031); Immature Granulocyte Percent A 0.5 % (0-0.5); Lymphocytes Percent Auto 20.2 % (18.3-44.2); Mean Corpuscular HGB Conc 33.1 g/dl (32-36); Mean Corpuscular Hemoglobin 33.3 pg (26-34); Mean Corpuscular Volume 100.8 fl (80-100); Monocytes Percent Auto 9.8 % (2.6-8.5); Neutrophils Absolute Auto 7.1 K/mm3 (1.3-6.7); Neutrophils Percent Auto 68.3 % (45.5-73.1); Platelet Count Result 185 k/mm3 (150-375); Red Blood Count 2.55 M/mm3 (4.6-6.20); Red Cell Distribution Width 13.8 % (11.5-14.5); White Blood Count 10.4 K/mm3 (4.5-10.0)
[2024-12-27 09:43] LABS: Potassium 4.1 mmol/L (3.4-5.0)
[2024-12-27 09:51] LABS: Anion Gap 7 mmol/L (4-12); Blood Urea Nitrogen 19 mg/dL (9-20); Calcium 8.9 mg/dL (8.4-10.2); Carbon Dioxide 29 mmol/L (22-30); Chloride 98 mmol/L (98-107); Estimated CRCL calculation 57 ml/min; Estimated Glomerular Filt Rate > 60; Glucose 98 mg/dL (65-110); Sodium 134 mmol/L (137-145)
--- NOTE | 2024-12-27 10:07 | P.PNOP_ITS ---
Progress Note: A&P Assessment and Plan (1) S/P total knee arthroplasty: Qualifiers: Laterality: right Qualified Code(s): Z96.651 - Presence of right artificial knee joint Code(s): Z96.659 - Presence of unspecified artificial knee joint Status: Acute Assessment and Plan: POD #2 : Right TKA Continue PT/OT. WBAT. Walker. HIGH FALL RISK. Continue pain control. Ice Knee. Protect skin. DVT prophylaxis with Aspirin. SCDs. Incentive Spirometry Use reviewed. Monitor Dressing. Change prior to discharge. Bowel Regimen. Dispo: Home with Home Health pending progress with PT/OT Time Spent With Patient Time: Reviewed history, exam, radiographs and current labs with attending MD and covering surgeon, Dr. Finn, who agrees with current plan as indicated above. No further recommendations from Dr. Finn at this time. Subjective Subjective Date/Time Seen: 12/27/24 10:07 Post Op day: 2 Interval history: POD #2: Right TKA Patient doing well. Pain well controlled. Cleared by PT/OT. Review of Systems Review of Systems: All systems reviewed & are unremarkable except as noted in HPI and below Constitutional: Constitutional: Denies fever(s) and Denies headache(s) ENT: Denies headache(s) Cardiovascular: Cardiovascular: Denies chest pain, Denies diaphoresis, Denies palpitations and Denies dyspnea Respiratory: Respiratory: Denies dyspnea Gastrointestinal: Gastrointestinal: Denies abdominal pain, Denies constipation, Denies nausea and Denies vomiting Genitourinary: Genitourinary: Denies dysuria and Reports nocturia Musculoskeletal: Musculoskeletal: Reports arthralgias (Right Knee ) and Reports joint swelling (Right Knee ) Neurologic: Denies headache(s) Endocrine: Endocrine: Denies palpitations Exam Const: General: comfortable and no acute distress Resp: Effort & Inspection: normal respiratory effort Cardio: Rate: regular rate Rhythm: regular rhythm GI: GI Palp: Yes Soft to palpation, No Tenderness to palpation present (GI) and No Guarding due to palpation present (GI) Skin: General skin exam: wounds noted Wounds: wounds noted Other: Incision c/d/i. No surrounding redness/warmth. No hematoma. Mild ecchymosis. No wound dehiscence Neuro: Cognition (Neuro): normal cognition Other: NV intact aside from block. Moves toes. Sensation intact to light touch. +ankle dorsiflexion/plantarflexion. Extrem: Right lower extremity: normal to inspection, knee Details: tenderness (diffuse, mild ) Location: of the patella, swelling (diffuse, consistent with surgical intervention ), abnormal ROM Details: pain with active ROM during, pain with passive ROM during and with range as follows (limited due to recent surgical intervention ); able to extend lower leg actively and ecchymosis (mild ), lower leg (Negative Bubba's Sign ) Details: normal to inspection; no erythema and no tenderness, ankle (+ankle dorsiflexion/plantarflexion ) Details: normal to inspection, no edema and normal ROM; no tenderness, no swelling and no ecchymosis and foot Details: normal capillary refill, normal to inspection, vascular exam Details: dorsalis pedis pulse present and motor-sensory exam Details: light-touch normal; no tenderness Left lower extremity: normal to inspection Psych: Mental Status: mental status grossly normal Objective Data Vital Signs Vital Signs: Vital Signs - 24 hr 12/26/24 10:26 12/26/24 13:29 12/26/24 20:00 Temperature 37.3 C 36.7 C Pulse Rate 81 69 Respiratory Rate 16 16 Blood Pressure 139/74 145/69 H Pulse Oximetry 100 100 Oxygen Delivery Room Air 12/26/24 21:59 12/27/24 06:00 Temperature 36.8 C 36.8 C Pulse Rate 79 72 Respiratory Rate 18 18 Blood Pressure 136/75 128/84 Pulse Oximetry 94 97 Oxygen Delivery Intake/Output Intake/Output: Intake & Output 12/24/24 12/25/24 12/26/24 12/27/24 23:59 23:59 23:59 23:59 Intake Total 1130 3370 Output Total 550 Balance 1130 3370 -550 Meds/Results Medications: Active Medications Generic Name Dose Route Start Last Admin Trade Name Freq PRN Reason Stop Dose Admin Acetaminophen 500 mg 12/25/24 11:44 12/27/24 05:54 Acetaminophen 500 Mg Tablet PO 500 mg Q6H PRN Administration Pain Rated 1-3 Allopurinol 300 mg 12/25/24 11:44 12/27/24 08:09 Allopurinol 300 Mg Tablet PO 300 mg DAILY [facility] Administration Amlodipine Besylate 5 mg 12/25/24 18:00 12/26/24 17:23 Amlodipine Besylate 5 Mg Tablet PO 5 mg QPM [facility] Administration Aspirin 650 mg 12/25/24 11:44 12/27/24 08:09 Aspirin 325 Mg Enteric Tablet PO 650 mg DAILY [facility] Administration Atorvastatin Calcium 40 mg 12/25/24 11:44 12/27/24 08:09 Atorvastatin 40 Mg Tablet PO 40 mg DAILY [facility] Administration Celecoxib 200 mg 12/25/24 11:44 12/27/24 08:08 Celecoxib 200 Mg Capsule PO 200 mg BIDWM [facility] Administration Diazepam 5 mg 12/25/24 11:44 12/27/24 05:54 Diazepam (*Crx) 5 Mg Tablet PO 5 mg Q8H PRN Administration Spasms Diphenhydramine HCl 25 mg 12/25/24 11:44 Diphenhydramine Hcl Inj 50 Mg/Ml Vial IV PUSH Q6H PRN Itching Famotidine 20 mg 12/25/24 11:44 12/27/24 08:09 Famotidine 20 Mg Tablet PO 20 mg Q12HR [facility] Administration Hydromorphone HCl 1 mg 12/25/24 11:44 Hydromorphone Hcl Inj (*Crx) 1 Mg/Ml Syr IV PUSH Q2H PRN Breakthrough Pain Rated 7-10 or NPO Hydromorphone HCl 0.5 mg 12/25/24 11:44 Hydromorphone Hcl Inj (*Crx) 1 Mg/Ml Syr IV PUSH Q2H PRN Breakthrough Pain Rated 4-6 or NPO Ibuprofen 800 mg in 200 mls @ 400 mls/hr 12/25/24 11:44 12/25/24 13:25 Caldolor 800 Mg/200 Ml IVPB Infused Q6H PRN Infusion Breakthrough Pain Rated 1-3 or NPO Indapamide 1.25 mg 12/25/24 11:44 12/27/24 08:09 Indapamide 1.25 Mg Tablet PO 1.25 mg DAILY [facility] Administration Isosorbide Mononitrate 120 mg 12/26/24 18:00 12/26/24 17:23 Isosorbide Mononitrate 60 Mg Tab.Er.24h PO 120 mg QPM [facility] Administration Miscellaneous Information 0 each 12/25/24 00:01 12/27/24 00:22 Trospium Is Nonformulary - Can Patient Use From Home? XX 01/24/25 00:00 Not Given CLARIFY [facility] Naloxone HCl 0.1 mg 12/25/24 11:44 Naloxone Hcl 0.4 Mg/Ml Vial IV PUSH Q2M PRN Opiate Reversal Non-Formulary Medication 20 mg 12/25/24 11:44 Trospium PO 01/24/25 11:43 BID [facility] Olmesartan 40 mg 12/25/24 11:55 12/27/24 08:08 Olmesartan Medoxomil 20 Mg Tablet PO 40 mg QAM [facility] Administration Ondansetron HCl 4 mg 12/25/24 11:44 12/25/24 12:53 Ondansetron Inj 4 Mg/2 Ml Vial IV PUSH 4 mg Q4H PRN Administration Nausea And Vomiting Oxycodone/Acetaminophen 1 tablet 12/25/24 11:44 12/27/24 08:16 Oxycodone/Acetaminophen (*Crx) 5-325 Mg Tablet PO 1 tablet Q4H PRN Administration Pain Rated 4-6 Oxycodone/Acetaminophen 1 tab 12/25/24 11:44 Oxycodone/Acetaminophen (*Crx) 10-325 Mg Tablet PO Q6H PRN Pain Rated 7-10 Polyethylene Glycol 17 gm 12/25/24 11:44 12/27/24 08:08 Polyethylene Glycol 3350 17 Gm Powd.Pack PO 17 gm QAM [facility] Administration Potassium Chloride 10 meq 12/25/24 11:55 12/27/24 08:08 Potassium Chloride 10 Meq Er Tablet PO 10 meq BID [facility] Administration Senna/Docusate Sodium 2 tab 12/25/24 11:44 12/27/24 08:08 Senna/Docusate Sodium Tablet PO 2 tab BID [facility] Administration Radiology Results: ITS Impressions Knee X-Ray 12/25/24 09:59 IMPRESSION: 1. Total right knee arthroplasty in near-anatomic alignment. Labs Labs: Laboratory Results - last 24 hr 12/27/24 12/27/24 08:59 09:00 WBC 10.4 H RBC 2.55 L Hgb 8.5 L Hct 25.7 L MCV 100.8 H MCH 33.3 MCHC 33.1 RDW 13.8 Plt Count 185 MPV 12.0 H Immature Gran % (Auto) 0.5 Neut % (Auto) 68.3 Lymph % (Auto) 20.2 [place] % (Auto) 9.8 H Eos % (Auto) 0.6 Baso % (Auto) 0.6 Lymph # (Auto) 2.10 [place] # (Auto) 1.0 H Eos # (Auto) 0.1 Baso # (Auto) 0.1 Abs Immat Gran (auto) 0.05 H Absolute Neuts (auto) 7.1 H Absolute Nucleated RBC 0.000 Nucleated RBC % 0.0 Sodium 134 L Potassium 4.1 Chloride 98 Carbon Dioxide 29 Anion Gap 7 BUN 19 Creatinine 0.89 Estim Creat Clear Calc 57 Estimated GFR > 60 Glucose 98 Calcium 8.9 Quality VTE Prophylaxis VTE prophylaxis: pharmacologic ordered
--- NOTE | 2024-12-28 14:05 | P.DS_ITS ---
DS: Admitting Diagnosis Discharge Date 12/27/24 Admitting Diagnosis Right Knee DJD DS: Discharge Diagnosis Discharge Diagnosis (1) S/P total knee arthroplasty: Qualifiers: Laterality: right Qualified Code(s): Z96.651 - Presence of right artificial knee joint Code(s): Z96.659 - Presence of unspecified artificial knee joint Status: Acute Assessment and Plan: POD #2 : Right TKA Continue PT/OT. WBAT. Walker. HIGH FALL RISK. Continue pain control. Ice Knee. Protect skin. DVT prophylaxis with Aspirin. SCDs. Incentive Spirometry Use reviewed. Monitor Dressing. Change prior to discharge. Bowel Regimen. Dispo: Home with Home Health pending progress with PT/OT DS: Summary Hospital Course Reason for hospitalization: Right TKA Hospital Course: 79 year old male admitted s/p Right TKA for postoperative medical management, pain control and mobilization with PT/OT. Patient progressed well with PT/OT. Pain and vitals remained stable throughout. The patient has been cleared to be discharged home with home health at this time. All discharge care instructions reviewed at depth. New medications reviewed. Follow up planned for 3 weeks in the outpatient orthopedic clinic with Dr. Finn. Dr. Finn in agreement with safe discharge at this time. Status at Discharge Functional status at discharge: uses cane/walker Overall status at discharge: patient is progressing back to baseline Time Spent with Patient Time attestation: Total time spent providing and/or coordinating discharge services: Exam Const: General: comfortable and no acute distress Resp: Effort & Inspection: normal respiratory effort Cardio: Rate: regular rate Rhythm: regular rhythm Skin: General skin exam: wounds noted Wounds: wounds noted Other: Incision c/d/i. No surrounding redness/warmth. No hematoma. Mild ecchymosis. No wound dehiscence Neuro: Cognition (Neuro): normal cognition Other: NV intact aside from block. Moves toes. Sensation intact to light touch. +ankle dorsiflexion/plantarflexion. Extrem: Right lower extremity: normal to inspection, knee Details: tenderness (diffuse, mild ) Location: of the patella, swelling (diffuse, consistent with surgical intervention ), abnormal ROM Details: pain with active ROM during, pain with passive ROM during and with range as follows (limited due to recent surgical intervention ); able to extend lower leg actively and ecchymosis (mild ), lower leg (Negative Bubba's Sign ) Details: normal to inspection; no erythema and no tenderness, ankle (+ankle dorsiflexion/plantarflexion ) Details: normal t o inspection, no edema and normal ROM; no tenderness, no swelling and no ecchymosis and foot Details: normal capillary refill, normal to inspection, vascular exam Details: dorsalis pedis pulse present and motor-sensory exam Details: light-touch normal; no tenderness Left lower extremity: normal to inspection Other: VSS AFEBRILE DRESSING WITH MILD DRAINAGE. NO ACTIVE BLEEDING FROM WOUND, NV INTACT NEG HOMANS SIGN CALF SOFT NON TENDER Psych: Mental Status: mental status grossly normal Discharge Plan Discharge Attending physician on discharge: Ulices Finn Consulting providers: Lexie Engel; Eric Angeles; Stevie Esposito Jr.; Miguel Angel Hernandez V. Discharging Clinician: Lexie Engel Patient Disposition: Home Health Service Activity: may shower, no driving and follow weight bearing status Diet: as tolerated Wound Care Instructions: follow printed instructions Discharge Instructions: Per Care Coordination: [facility] ([phone]) will call to set up initial visit. Post Op Total Knee Replacement Instructions Dr. Ulices Finn [phone] * Your dressing will be changed prior to your discharge. You will be sent home with one additional dressing to be changed on post op day 7 by the [facility] RN. Your kemi will be removed on the 14th day after surgery and steri- strips will be placed. Please practice good hand hygiene and do not touch your incision in order to prevent infection. * You may shower with your dressing but do not submerge in a bath tub. * Do not drive or operate machinery until you are released by Dr. Finn. * Do not walk without a walker for any reason until you are released by Dr. Finn. * Continue to use your ice machine. Please use a towel or pillow case to protect your skin before applying your ice machine. * Do NOT place a pillow under your knee. You may use a pillow from the calf down if needed. This will prevent a flexion contracture postoperatively. * CPM: You may begin use of your CPM machine at home if you have been given one pre-operatively. DO NOT USE WHILE YOU ARE SLEEPING. * [employer]Tech: If you were given a [employer] Portable Connect System preoperatively, you are to begin use on the day you arrive home postoperatively. Our goal is for you to use the machine 5 times per day. The sessions are very short in the beginning and will progress as you progress. We are able to monitor your progress from afar as well as your pain and other reported symptoms. If you have difficulties with the machine, please call . 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 * Your first post op appointment was sent to you via mail preoperatively. If you have any questions or are unable to make your appointment, please contact our office for scheduling questions. * Your medications have been sent to your pharmacy. You have been sent home with pain medication. Please pickup driver an over the counter stool softener to prevent constipation due to narcotic use. Please keep this in mind during your postoperative recovery. If you are not experiencing regular bowel movements, please contact our office for further instruction. * Please contact our office with any questions/concerns regarding your knee at [phone]. Patient Instructions: Antibiotic Form Patient Language: Italian Stand Alone Forms: General Discharge Information Follow-up/Referrals: Ulices Finn MD [Physician] - Keep Reg. Scheduled Appt. Discharge Medications: New oxycodone-acetaminophen 5-325 mg Tablet 1 - 2 tablet PO Q4-6H PRN (Reason: pain) Qty: 30 0RF aspirin 325 mg Tablet,Delayed Release (Dr/Ec) 650 mg PO DAILY 28 Days Qty: 56 0RF Continued allopurinol 300 mg tablet 300 mg PO DAILY trospium 20 mg tablet 20 mg PO BID Rx Instructions: administer on an empty stomach amlodipine 5 mg tablet 5 mg PO .EVENING Patient Comments: TAKING 1 TAB Q EVENING indapamide 1.25 mg tablet 1.25 mg PO DAILY Patient Comments: QAM isosorbide mononitrate 120 mg tablet extended release 24 hr 120 mg PO .EVENING olmesartan 40 mg tablet 40 mg PO DAILY Patient Comments: QAM atorvastatin 40 mg tablet 40 mg PO DAILY cholecalciferol (vitamin D3) 50 mcg (2,000 unit) capsule 50 mcg PO DAILY multivitamin [Daily Multi-Vitamin] Tablet 1 tablet PO DAILY omega-3 fatty acids Capsule 2,000 mg PO DAILY coenzyme Q10 100 mg capsule 200 mg PO BID Probiotic 3 billion cell capsule 3,000 mmu cells PO DAILY Rx Instructions: administer with a meal potassium chloride 20 mEq tablet,ER particles/crystals 10 meq PO BID Held aspirin 81 mg tablet,delayed release (DR/EC) 81 mg PO DAILY Hold Instructions: Resume on 01/22/25. Discontinued chlorhexidine gluconate [Hibiclens] 4 % liquid 1 applic topical ONCE Qty: 237 0RF Rx Instructions: Cleanse operative extremity, in shower, every day for 1 week prior to surgical procedure. Date of admission: 12/27/24 08:17 Primary Care Provider: Sailaja,Pelon Admitting Provider: Ulices Finn Attending physician on admission: Ulices Finn Condition: Stable Quality VTE Prophylaxis VTE prophylaxis: pharmacologic ordered
== END 2024-12-27 10:45 | disposition home health service (06) ==
LOC: ANHSURGERY 09:13 → ANH3MEDSUR 09:13
PROVIDERS: Nurse Practitioner Family; Admitting Provider Orthopaedic Surgery; Visit Provider Orthopaedic Surgery
PROC: (CPT 27447; principal; 2024-12-25 07:30)
DX: M17.11 Unilateral primary osteoarthritis, right knee (principal); G89.18 Other acute postprocedural pain; I10 Essential (primary) hypertension; I73.9 Peripheral vascular disease, unspecified; Z87.891 Personal history of nicotine dependence; Z79.899 Other long term (current) drug therapy
CPT/HCPCS: 64447; 27447; 36415; 73560; 80048; 85025; 86850; 86900; 86901; 97110; 97116; 97162; 97165; 97530; 97535; A9270; C1713; C1776; G0378; J0171; J0690; J1100; J1171; J1596; J1741; J1885; J2003; J2270; J2371; J2405; J2704; J2795; J3010; J7030; J7120